=== PATIENT | male | born 1945 | race Caucasian/White ===

== ENCOUNTER → 2016-11-17 | Day surgery (SDC) | payer MEDICARE, BC ==
[~2016-11-17] MED LIST: ALPR0.254 PO; ASPI81TA2 PO; ATOR40TA59 PO; ESOM40CA47 PO; FERR-26 PO; IV RINGERS,LACTATED 1000ML 1,000 ML IV SCH; LIDOCAINE 2% PF Vial for OR 5 ML VIAL. ONE; LOSA50TA6 PO; PROPOFOL 20 ML IV ONE
[2016-11-17 10:15] VITALS: BP 149/71
== END | disposition home or self-care (01) ==
LOC: ENDOS 09:01
PROVIDERS: ATTEND Internal Medicine Gastroenterology
DX: K22.2 Esophageal obstruction (principal); K29.50 Unspecified chronic gastritis without bleeding; K21.9 Gastro-esophageal reflux disease without esophagitis; F41.9 Anxiety disorder, unspecified; I10 Essential (primary) hypertension; E78.5 Hyperlipidemia, unspecified; E78.00 Pure hypercholesterolemia, unspecified; M19.90 Unspecified osteoarthritis, unspecified site; Z98.42 Cataract extraction status, left eye; Z98.41 Cataract extraction status, right eye
CPT/HCPCS: 43235; 43450; J2704

== ENCOUNTER → 2021-04-13 | Outpatient (CLI) | payer MEDICARE, BC ==
[2016-11-17 10:15] VITALS: BP 149/71
[~2021-04-13] MED LIST changes: +ASPI-630 PO; -ASPI81TA2 PO; +BARIUM SULFATE 40% (APPLE) 148 GM PWD. PO ONE; -FERR-26 PO; +FERR325T14 PO; -IV RINGERS,LACTATED 1000ML 1,000 ML IV SCH; -LIDOCAINE 2% PF Vial for OR 5 ML VIAL. ONE; +LOSA-73 PO; -LOSA50TA6 PO; -PROPOFOL 20 ML IV ONE
--- NOTE | 2021-04-13 14:53 | RAD ---
EXAM: Video swallow evaluation. HISTORY: Dysphagia. TECHNIQUE: Fluoroscopic imaging was performed with a speech pathologist during the oral measures and during contrast of varying consistencies. A single fluoroscopic image is obtained. The total fluorosc opy time is 3 minutes. COMPARISON: None. FINDINGS: There is silent trace aspiration of thin barium consistency. There is significant pooling o f contrast within the valleculae and piriform sinuses. IMPRESSION: Trace aspiration of thin barium consistency and pooling of contrast within the valleculae and piriform sinuses. Please refer to the separate report by the speech pathologist for clinical rec ommendations. Electronically signed by: Josee Upton MD (04/13/2021 2:51 PM) [id number]
== END ==
LOC: RAD 12:56
PROVIDERS: ATTEND Internal Medicine Gastroenterology
DX: R13.10 Dysphagia, unspecified (principal); I10 Essential (primary) hypertension; E78.00 Pure hypercholesterolemia, unspecified; K21.9 Gastro-esophageal reflux disease without esophagitis; F41.9 Anxiety disorder, unspecified; M19.90 Unspecified osteoarthritis, unspecified site; Z95.1 Presence of aortocoronary bypass graft; Z98.41 Cataract extraction status, right eye; Z98.42 Cataract extraction status, left eye; Z98.890 Other specified postprocedural states
CPT/HCPCS: 74230; 92526-GN; 92611-GN

== ENCOUNTER → 2021-07-01 | Outpatient (CLI) | payer MEDICARE, BC ==
[2016-11-17 10:15] VITALS: BP 149/71
[~2021-07-01] MED LIST changes: -BARIUM SULFATE 40% (APPLE) 148 GM PWD. PO ONE
--- NOTE | 2021-07-01 11:23 | KCIC ---
MRI of the brain without contrast 07/01/2021 Clinical History: Dysphagia.. Technique: Unenhanced T1-weighted sagittal and axial, T2-weighted axial and coronal and FLAIR, gradie nt echo and diffusion-weighted axial images of the brain were obtained. Findings: There is generalized parenchymal atrophy. Patchy and several small scattered areas of incre ased signal intensity are seen within the periventricular and subcortical white matter along with the belinda of both cerebral hemispheres on the FLAIR and T2-weighted images consistent with areas of mild small vessel ischemic disease. No acute parenchymal abnormality is seen. No extra-axial fluid collection is noted. There is no MRI e vidence of acute ischemia/infarction. Mild mucosal thickening in seen scattered throughout the paranasal sinuses. There are small bilateral mastoid effusions. Normal flow voids are seen within the major vascular structures surrounding the b rain parenchyma. IMPRESSION: No acute parenchymal abnormality is seen. Electronically signed by: Adelso Stewart MD (07/01/2021 11:21 AM) [id number]
== END ==
LOC: KCIC MRI 09:58
PROVIDERS: ATTEND Nurse Practitioner Family
DX: J34.89 Other specified disorders of nose and nasal sinuses (principal); G93.6 Cerebral edema; R13.19 Other dysphagia
CPT/HCPCS: 70551

== ENCOUNTER 2022-01-13 08:06 | Inpatient (IN) | payer MEDICARE, BC ==
[~2022-01-13] VITALS: Ht 182.9 cm; Wt 67.1 kg
[2022-01-13 08:30] VITALS: BP 165/67
[2022-01-13 11:00] VITALS: BP 156/71
[2022-01-13] MEDS: MORPHINE SULFATE 2 MG/ML INJ. IV PRN ×2 (11:14→14:36)
[2022-01-13] MEDS ORDERED: CALC500T31 PO (12:22)
[2022-01-13] MEDS ORDERED: MULT-496 PO (12:22)
[2022-01-13] MEDS ORDERED: LOSA100T14 PO (12:22)
[2022-01-13] MEDS ORDERED: CHOL500021 PO (12:22)
[2022-01-13] MEDS ORDERED: ATOR80TA72 PO (12:22)
[2022-01-13] MEDS ORDERED: EZET10TA20 PO (12:22)
[2022-01-13] MEDS ORDERED: OMEG-129 PO (12:22)
[2022-01-13] MEDS ORDERED: ASPI-630 PO (12:22)
[2022-01-13] MEDS ORDERED: ALPR0.254 PO (12:22)
[2022-01-13] MEDS ORDERED: ASCO500C PO (12:22)
[2022-01-13] MEDS ORDERED: OMEP40CA7 PO (12:22)
[2022-01-13] MEDS ORDERED: ACETAMINOPHEN 650 MG SUPP.RECT. PR PRN (14:45)
[2022-01-13] MEDS ORDERED: ONDANSETRON PF 4 MG/2 ML VIAL. IVP PRN (14:45)
[2022-01-13] MEDS ORDERED: IV NORMAL SALINE 1000ML BAG 1,000 ML IV SCH (14:45)
[2022-01-13] MEDS ORDERED: BISACODYL 10 MG SUPP.RECT. PR PRN (14:45)
--- NOTE | 2022-01-13 14:50 | PDOC1 ---
History and Physical Date of Admission Date of Admission DATE: 01/13/22 TIME: 14:50 Identification/Chief Complaint Chief Complaint Abdominal pain, SBO Source Source: Patient History of Present Illness History of Present Illness Mr Iqbal is a 76-year-old male with PMHx dysphagia, HTN, AAA s/p stenting, GERD, anxiety who presented to [facility] in [place], [place] via EMS with abdominal pain and distention. This began on 01/12/22 around 1700 in the evening. He did have a BM on 01/12, but noted worsening distention and swelling and pain that is colicky, diffuse, worse in the left lower quadrant, not relieved with rest or r epositioning. He does note prior bowel obstruction and does have history of AAA s/p stenting as well as prior abdominal surgery over 10 years ago for what he thinks was perforated diverticulitis and CABG. He does see GI outpatient and has had recent swallow evaluation in the last year as well as MRI for dysphagia assessment. CT abdomen pelvis without contrast with distended small bowel loops on my interpretation with colonic stool notable. EKG appears to be sinus rhythm, rate 59, normal axis, no ST elevation or depression. WBC 12.3, Hb 12.7, MCV 102, platelets 232, NA 140, K4.2, BUN 23, CR 1.6, glucose 142, albumin 4, high-sensitivity troponin is 9, AST 28, ALT 29, alkaline phosphatase 115 total bilirubin 0.7, rapid COVID-19 negative NGT placed for patient comfort for decompression and given IV fentanyl 75mcg with some relief. Was transferred to [place] for surgical evaluation and further higher level of care. Pain not relieved bedside with 2mg of IV morphine, still visibly uncomfortable. Past Medical History Cardiovascular: HTN GI: GERD Psych: Anxiety Past Surgical History Past Surgical History Coronary Bypass Surgery, Gastric Bypass Past Surgical History: CABG Family History Family History: Hypertension Social History Smoke: No ALCOHOL: occassional Drugs: None Current Medications Current Medications Current Medications Morphine Sulfate (Morphine Sulfate) 2 mg PRN Q2HR PRN IV PAIN Last administered on 01/13/22at 14:36; Start 01/13/22 at 11:15 Active Scripts Active Reported [place]-3 Fish Oil 1,000 mg Sfgl ([place]-3 Fatty Acids/Fish Oil) 1 Each Capsule 1 Each PO DAILYWLUN Daily Value (Multivitamin) 1 Each Tablet 1 Tab PO HS 30 Days Vitamin C (Ascorbic Acid) 500 Mg Capsule.er 1,000 Mg PO HS D3-50 (Cholecalciferol (Vitamin D3)) 50,000 Unit Capsule 1,000 Unit PO HS Calcium Carbonate 500 Mg Tablet 1 Tab PO DAILYWLUN 30 Days Aspirin 81 Mg Tab.chew 1 Tab PO QMTH Atorvastatin Calcium 80 Mg Tablet 80 Mg PO QHS Zetia (Ezetimibe) 10 Mg Tablet 1 Tab PO HS 30 Days Alprazolam 0.25 Mg Tablet 1 Tab PO DAILY Losartan Potassium 100 Mg Tablet 100 Mg PO HS Omeprazole 40 Mg Capsule.dr 1 Cap PO DAILYWLUN Ferrous Sulfate 325 Mg Tablet 325 Mg PO Allergies Allergies: Coded Allergies: iodine (Verified Allergy, Intermediate, Rash, 11/17/16) ROS General: YES: Appetite PSYCHOLOGICAL ROS: No: Anxiety, Behavioral Disorder, Concentration difficultie, Decreased libido, Depression, Disorientation, Hallucinations, Hostility, Irritablity, Memory difficulties, Mood Swings, Obsessive thoughts, Physical a buse, Sexual abuse, Sleep disturbances, Suicidal ideation, Other Eyes: No Blurry vision, No Decreased vision, No Double vision, No Dry eyes, No Excessive tearing, No Eye Pain, No Itchy Eyes, No Loss of vision, No Photophobia, No Scotomata, No Uses contacts, No Uses glasses, No Other HEENT: No: Heacaches, Visual Changes, Hearing change, Nasal congestion, Nasal discharge, Oral lesions, Sinus pain, Sore Throat, Epistaxis, Sneezing, Snoring, Tinnitus, Vertigo, Vocal changes, Other ALLERGY AND IMMUNOLOGY: No: Hives, Insect Bite Sensitivity, Itchy/Watery Eyes, Nasal Congestion, Post Nasal Drip, Seasonal Allergies, Other Hematological and Lymphatic: No: Bleeding Problems, Blood Clots, Blood Transfusions, Brusing, Night Sweats, Pallor, Swollen Lymph Nodes, Other ENDOCRINE: No: Breast Changes, Galactorrhea, Hair Pattern Changes, Hot Flashes, Malaise/lethargy, Mood Swings, Palpitations, Polydipsia/polyuria, Skin Changes, Temperature Intolerance, Unexpected Weight Changes, Other Breast: No New/Changing Breast Lumps, No Nipple changes, No Nipple discharge, No Other Respiratory: No: Cough, Hemoptysis, Orthopnea, Pleuritic Pain, Shortness of breath, SOB with excertion, Sputum Changes, Stridor, Tachypnea, Wheezing, Other Cardiovascular: No Chest Pain, No Palpitations, No Orthopnea, No Paroxysmal Noc. Dyspnea, No Edema, No Lt Headedness, No Other Gastrointestinal: Yes Nausea, Yes Abdominal Pain; No Vomiting, No Diarrhea, No Constipation, No Melena, No Hematochezia, No Other Genitourinary: No Dysuria, No Frequency, No Incontinence, No Hematuria, No Retention, No Discharge, No Urgency, No Pain, No Flank Pain, No Other, No , No , No , No , No , No , No Musculoskeletal: No Gait Disturbance, No Joint Pain, No Joint Stiffness, No Joint Swelling, No Muscle Pain, No Muscular Weakness, No Pain In:, No Swelling In:, No Other Neurological: No Behavorial Changes, No Bowel/Bladder ControlChng, No Confusion, No Dizziness, No Gait Disturbance, No Headaches, No Impaired Coord/balance, No Memory Loss, No Numbness/Tingling, No Seizures, No Speech Problems, No Tremors, No Visual Changes, No Weakness, No Other Skin: No Dry Skin, No Eczema, No Hair Changes, No Lumps, No Mole Changes, No Mottling, No Nail Changes, No Pruritus, No Rash, No Skin Lesion Changes, No Other, No Acne Physical Exam General: Alert, Oriented X3, Cooperative, moderate distress HEENT: Atraumatic, PERRLA, EOMI, Mucous membr. moist/pink, Other (NGT right nares) Lungs: Clear to auscultation, Normal air movement Heart: S1S2, RRR, no thrills, no rubs, no gallops, no murmurs, other (CABG scar) Abdomen: No hepatosplenomegaly, No masses, Other (distended abdomen, diffusely tender) Extremities: No clubbing, No cyanosis, No edema, Normal pulses, No ten derness/swelling Skin: No rashes, No breakdown, No significant lesion Neuro: Normal gait, Normal speech, Strength at 5/5 X4 ext, Normal tone, Sensation intact, Cranial nerves 3-12 NL, Reflexes 2+ Psych/Mental Status: Mental status NL, Mood NL Vitals Vitals Vital Signs Date Time Temp Pulse Resp B/P (MAP) Pulse Ox O2 Delivery O2 Flow Rate FiO2 01/13/22 11:14 Room Air 01/13/22 11:00 97.5 60 18 156/71 99 100 97.5 Images Images EXAM: CT Abdomen and Pelvis without IV contrast CLINICAL HISTORY: Reason: abdominal distention, contrast allergy / Spl. Instructions: / History: . COMPARISON: none TECHNIQUE: Helical CT of the abdomen and pelvis without intravenous contrast. Axial, coronal and sagittal reformatted images were generated. PQRS compliance statement - One or more of the following individualized dose reduction techniques were utilized for this study: 1. Automated exposure control 2. Adjustment of the mA and/or kV according to patient size 3. Use of iterative reconstruction technique FINDINGS: Lack of intravenous contrast limits evaluation of solid organs, vasculature, and lymph nodes. Lower chest: Lung bases are clear. Abdomen and Pelvis: No focal liver lesion. Gallbladder is normal. Spleen and adrenal glands are grossly unremarkable. Bilateral renal cysts are seen. Nonobstructing right lower pole and left lower pole renal calculi. No hydronephrosis. No hydroureter. Diffuse dilated loops of small are seen to a transition point in the left lower quadrant. Left internal hernia contains a segment of small bowel although the transition point is thought to be distal to this. No pneumoperitoneum or bowel wall gas is convincingly identified. A few small foci of gas in the anterior right hemiabdomen likely within small bowel loops. The distal small bowel is decompressed. Large volume colonic stool content is seen. Anastomosis at the rectosigmoid is seen. Aortobiiliac atherosclerotic stent. Abdominal aortic aneurysm sac measures 4.9 cm. No abdominal or pelvic lymphadenopathy. No abdominal or pelvic ascites. Bones: Sclerotic focus left iliac bone, bone island. IMPRESSION: 1. Diffuse dilation of small bowel loops to the left lower quadrant, consistent with bowel obstruction. Left inguinal hernia contains a segment of small bowel although the obstruction appears to be distal. 2. Large volume colonic stool content. 3. Abdominal aortic aneurysm post aortobiiliac stent. 4. Nonobstructing renal calculi. Bilateral renal cysts are seen. VTE Prophylaxis Ordered VTE Prophylaxis Devices: No VTE Pharmacological Prophylaxi: Yes Assessment/Plan Assessment/Plan SBO - on CT. NPO. NGT decompression. Dr. Martinez consulted from general surgery. IV pain and nausea meds Intractable abdominal pain - likely from SBO. IV morphine prn Constipation - dulcolax suppository prn CAD s/p CABG - no active chest pain currently GERD - IV ppi Anxiety - on prn xanax, no SSRI or SNRI prescriptions HTN - on amlodipine and losartan. Will give PRN vasotec while NPO HLD - on zetia, lipitor. Hold while NPO AAA - s/p stenting JULI - likely vasomotor nephropathy - will hydrate and monitor renal function Macrocytic anemia - will check B12. Possibly ETOH is more than patient states Left inguinal hernia - reducible Nonobstructing renal calculi Bilateral renal cysts FEN - NPO PPX - heparin FULL CODE DIspo - inpatient Justifications for Admission Abdominal Pain Indications Hemodynamically unstable?: Yes Justification for admission: Patient is hemodynamically unstable as indicated by persistent tachycardia (of.), or hypotension (of..) or orthostatic vitalsigns (of..) despite approapriate treatment. Is patient in severe pain?: Yes Justification for admission: Patient has severe pain that requires (parenteral analgesic-please state analgesics and route) at least every 4 hours necessitating inpatient level of care. Is NPO status required?: Yes Justification for admission: Patient may require to be NPO for greater 24hours making it medically necessary to manage patient as inpatient. Other Justification LEWIS DOMINGUEZ MD Jan 13, 2022 14:50
[2022-01-13 15:00] VITALS: BP 179/73
[2022-01-13] MEDS: MORPHINE SULFATE 4 MG/ML INJ. IVP PRN ×2 (16:58→21:10)
[2022-01-13 19:00] VITALS: BP 166/60
--- NOTE | 2022-01-13 22:23 | NUR ---
Pt. accidentially pulled out NG tube. Canister was all the way empty and nothing was coming out. Notified Dr. Pereira and he stated that we can just leave it out for now and they will get another KUB in the am.
[2022-01-13 23:00] VITALS: BP 169/80
[2022-01-14] MEDS: MORPHINE SULFATE 4 MG/ML INJ. IVP PRN ×2 (01:35→06:21)
[2022-01-14 03:00] VITALS: BP 162/79
[2022-01-14 07:00] VITALS: BP 163/59
--- NOTE | 2022-01-14 08:15 | RAD ---
Supine view of the abdomen were performed. History: Small bowel obstruction Comparison: None. FINDINGS: Extensive gaseous distended loops of small and large bowel. No radiographic which through o ccluded cecum/ascending colon as well as the rectum. No pathologic air-fluid levels. No gross eviden ce of free intra-abdominal air. Lung bases are not visualized. No pathologic calcifications. Aortobii liac endovascular repair is noted. No acute osseous process. IMPRESSION: Extensive gaseous distention of numerous small and large bowel loops may be from distal obstruction v ersus ileus. Large colorectal stool burden present. Correlate with symptoms of constipation. Recommen d continued evaluation with serial abdominal radiographs. Electronically signed by: Javad Morgan DO (01/14/2022 8:13 AM) [id number]
[2022-01-14 08:20] LABS: ALBUMIN 3.4 g/dL (3.4-5.0); ALBUMIN/GLOBULIN RATIO 0.9 (1.0-1.7); CALCIUM 8.7 mg/dL (8.5-10.1); CREATININE 1.5 mg/dL (0.7-1.3); GFR 45.6; POTASSIUM 4.2 mmol/L (3.5-5.1); TOTAL BILIRUBIN 0.8 mg/dL (0.2-1.0)
--- NOTE | 2022-01-14 08:47 | PDOC2 ---
CONSULT Date of Consult Date of Consult DATE: 01/14/22 TIME: 08:43 Reason for Consult Reason for Consult: SBO Referring Physician Referring Physician: Dr Almanzar Identification/Chief Complaint Chief Complaint abdominal pain Source Source: Chart review, Patient History of Present Illness Reason for Visit: Here with abdominal pain, distention. No bowel function since . Hx of colon surgery in 2009, thinks for diverticulitis. Has had SBO in past he believes. Ng was placed, accidentally pulled out, not replaced Past Medical History Cardiovascular: HTN GI: GERD Psych: Anxiety Past Surgical History Past Surgical History: CABG Family History Family History: Hypertension Social History No ALCOHOL: occassional Drugs: None Current Medications Current Medications Current Medications Morphine Sulfate (Morphine Sulfate) 2 mg PRN Q2HR PRN IV PAIN Last administered on 01/13/22at 14:36; Start 01/13/22 at 11:15; Stop 01/13/22 at 16:04; Status DC Sodium Chloride 1,000 ml @ 100 mls/hr Q10H IV Last administered on 01/13/22at 14:45; Start 01/13/22 at 14:45; Stop 01/14/22 at 00:44; Status DC Ondansetron HCl (Zofran) 4 mg PRN Q4HRS PRN IVP NAUSEA/VOMITING; Start 01/13/22 at 14:45 Bisacodyl (Dulcolax Supp) 10 mg PRN DAILY PRN MT CONSTIPATION; Start 01/13/22 at 14:45 Acetaminophen (Tylenol Supp) 650 mg PRN Q6HRS PRN MT MILD PAIN / TEMP > 100.3'F; Start 01/13/22 at 14:45 Morphine Sulfate (Morphine Sulfate) 4 mg PRN Q2HR PRN IVP PAIN Last administered on 01/14/22at 06:21; Start 01/13/22 at 16:15 Pantoprazole Sodium (PROTONIX VIAL for IV PUSH) 40 mg DAILYAC IVP ; Start 01/14/22 at 07:30 Enalaprilat (Vasotec Inj) 1.25 mg PRN Q6HRS PRN IVP HYPERTENSION; Start 01/13/22 at 22:30 Active Scripts Active Reported [place]-3 Fish Oil 1,000 mg Sfgl ([place]-3 Fatty Acids/Fish Oil) 1 Each Capsule 1 Each PO DAILYWLUN Daily Value (Multivitamin) 1 Each Tablet 1 Tab PO HS 30 Days Vitamin C (Ascorbic Acid) 500 Mg Capsule.er 1,000 Mg PO HS D3-50 (Cholecalciferol (Vitamin D3)) 50,000 Unit Capsule 1,000 Unit PO HS Calcium Carbonate 500 Mg Tablet 1 Tab PO DAILYWLUN 30 Days Aspirin 81 Mg Tab.chew 1 Tab PO QMTH Atorvastatin Calcium 80 Mg Tablet 80 Mg PO QHS Zetia (Ezetimibe) 10 Mg Tablet 1 Tab PO HS 30 Days Alprazolam 0.25 Mg Tablet 1 Tab PO DAILY Losartan Potassium 100 Mg Tablet 100 Mg PO HS Omeprazole 40 Mg Capsule.dr 1 Cap PO DAILYWLUN Ferrous Sulfate 325 Mg Tablet 325 Mg PO Allergies Allergies: Coded Allergies: iodine (Verified Allergy, Intermediate, Rash, 11/17/16) ROS General: No: Chills, Other (fevers ) PSYCHOLOGICAL ROS: No: Anxiety, Depression Eyes: No Blurry vision, No Double vision HEENT: No: Heacaches, Sore Throat Hematological and Lymphatic: No: Bleeding Problems, Blood Clots Respiratory: No: Cough, Shortness of breath Cardiovascular: No Chest Pain, No Palpitations Gastrointestinal: Yes Other (see hpi) Genitourinary: No Dysuria, No Hematuria Musculoskeletal: No Joint Pain Neurological: No Impaired Coord/balance, No Numbness/Tingling Skin: No Pruritus Physical Exam General: Alert, Oriented X3, Cooperative HEENT: Atraumatic, PERRLA Lungs: Clear to auscultation, Normal air movement Heart: Regular rate, Normal S1, Normal S2 Abdomen: Soft, Other (severe distention, nontender, no peritoneal signs ) Extremities: No clubbing, No cyanosis Skin: No rashes, No breakdown Neuro: Normal speech, Strength at 5/5 X4 ext Psych/Mental Status: Mental status NL, Mood NL MUSCULOSKELETAL: No deformity, No swelling Vitals VITALS Vital Signs Date Time Temp Pulse Resp B/P (MAP) Pulse Ox O2 Delivery O2 Flow Rate FiO2 01/14/22 07:29 17 Room Air 01/14/22 07:00 97.5 86 163/59 (93) 87 97.5 Labs Labs Laboratory Tests Test 01/14/22 06:30 Sodium Level 144 mmol/L (136-145) Potassium Level 4.2 mmol/L (3.5-5.1) Chloride Level 103 mmol/L (98-107) Carbon Dioxide Level 25 mmol/L (21-32) Anion Gap 16 (6-14) Blood Urea Nitrogen 22 mg/dL (8-26) Creatinine 1.5 mg/dL (0.7-1.3) Estimated GFR (Cockcroft-Gault) 45.6 BUN/Creatinine Ratio 15 (6-20) Glucose Level 113 mg/dL (70-99) Calcium Level 8.7 mg/dL (8.5-10.1) Total Bilirubin 0.8 mg/dL (0.2-1.0) Aspartate Amino Transf (AST/SGOT) 21 U/L (15-37) Alanine Aminotransferase (ALT/SGPT) 21 U/L (16-63) Alkaline Phosphatase 107 U/L (46-116) Total Protein 7.0 g/dL (6.4-8.2) Albumin 3.4 g/dL (3.4-5.0) Albumin/Globulin Ratio 0.9 (1.0-1.7) Thyroid Stimulating Hormone (TSH) 1.866 uIU/mL (0.358-3.74) Laboratory Tests Test 01/14/22 06:30 Sodium Level 144 mmol/L (136-145) Potassium Level 4.2 mmol/L (3.5-5.1) Chloride Level 103 mmol/L (98-107) Carbon Dioxide Level 25 mmol/L (21-32) Anion Gap 16 (6-14) Blood Urea Nitrogen 22 mg/dL (8-26) Creatinine 1.5 mg/dL (0.7-1.3) Estimated GFR (Cockcroft-Gault) 45.6 BUN/Creatinine Ratio 15 (6-20) Glucose Level 113 mg/dL (70-99) Calcium Level 8.7 mg/dL (8.5-10.1) Total Bilirubin 0.8 mg/dL (0.2-1.0) Aspartate Amino Transf (AST/SGOT) 21 U/L (15-37) Alanine Aminotransferase (ALT/SGPT) 21 U/L (16-63) Alkaline Phosphatase 107 U/L (46-116) Total Protein 7.0 g/dL (6.4-8.2) Albumin 3.4 g/dL (3.4-5.0) Albumin/Globulin Ratio 0.9 (1.0-1.7) Thyroid Stimulating Hormone (TSH) 1.866 uIU/mL (0.358-3.74) Assessment/Plan Assessment/Plan SBO LIH., reducible, does not appear obstruction point large stool burden, ? ileus, constipation will replace NG, decompress, give suppository, premed for SBFT in AM GLENDY CENTENO APRN Jan 14, 2022 08:46
[2022-01-14] MEDS ORDERED: BISACODYL 10 MG SUPP.RECT. PR ONE (09:15)
[2022-01-14] MEDS: PANTOPRAZOLE IV PUSH 40 MG VIAL. IVP SCH (09:42)
[2022-01-14 11:00] VITALS: BP 174/80
[2022-01-14 11:23] LABS: BASO % 0 % (0-3); EOS % 0 % (0-3); HEMATOCRIT 36.5 % (39.0-53.0); HEMOGLOBIN 12.1 g/dL (13.0-17.5); LYMPH # 0.4 x10^3/uL (1.0-4.8); LYMPH % 3 % (24-48); MEAN CORPUSCULAR HEMOGLOBIN 34 pg (25-35); MEAN CORPUSCULAR HGB CONC 33 g/dL (31-37); MEAN CORPUSCULAR VOLUME 103 fL (79-100); MONO # 1.3 x10^3/uL (0.0-1.1); MONO % 9 % (0-9); NEUT # 12.9 x10^3/uL (1.8-7.7); NEUT % 88 % (31-73); PLATELET COUNT 198 x10^3/uL (140-400); RED BLOOD COUNT 3.55 x10^6/uL (4.30-5.70); WHITE BLOOD COUNT 14.6 x10^3/uL (4.0-11.0)
--- NOTE | 2022-01-14 11:25 | NUR ---
THIS [employer]ORER PLACED NG TUBE TO PATIENTS RIGHT NARE, PATIENT TOLERATED PLACEMENT WITH MINIMAL DISCOMFORT, KUB ORDERED PER THIS [employer]ER TO ASSESS PLACEMENT, PRIOR TO OBTAINIG KUB PATIENT BEGAN TO COUGH AND SPIT UP CREAM COLORED SECRETIONS, PATIENT EXAMINED BY DR. MARSHALL ON THE UNIT AND NG REMOVED, COUGHING DECREASED AT THAT TIME AND NO MORE SPITTING UP NOTICED.
--- NOTE | 2022-01-14 11:29 | PDOC ---
[employer] PROGRESS NOTE Date of Service DOS: DATE: 01/14/22 TIME: 11:25 Chief Complaint Chief Complaint SBO - on CT. NPO. NGT decompression. Dr. Martinez consulted from general surgery. IV pain and nausea meds Intractable abdominal pain - likely from SBO. IV morphine prn Constipation - dulcolax suppository prn CAD s/p CABG - no active chest pain currently GERD - IV ppi Anxiety - on prn xanax, no SSRI or SNRI prescriptions HTN - on amlodipine and losartan. Will give PRN vasotec while NPO HLD - on zetia, lipitor. Hold while NPO AAA - s/p stenting JULI - likely vasomotor nephropathy - will hydrate and monitor renal function Macrocytic anemia - will check B12. Possibly ETOH is more than patient states Left inguinal hernia - reducible Nonobstructing renal calculi Bilateral renal cysts FEN - NPO PPX - heparin FULL CODE DIspo - inpatient History of Present Illness History of Present Illness Mr Iqbal is a 76-year-old male with PMHx dysphagia, HTN, AAA s/p stenting, GERD, anxiety who presented to [facility] in [place], [place] via EMS with abdominal pain and distention. This began on 01/12/22 around 1700 in the evening. He did have a BM on 01/12, but noted worsening distention and swelling and pain that is colicky, diffuse, worse in the left lower quadrant, not relieved with rest or repositioning. He does note prior bowel obstruction and does have history of AAA s/p stenting as well as prior abdominal surgery over 10 years ago for what he thinks was perforated diverticulitis and CABG. He does see GI outpatient and has had recent swallow evaluation in the last year as well as MRI for dysphagia assessment. CT abdomen pelvis without contrast with distended small bowel loops on my interpretation with colonic stool notable. EKG appears to be sinus rhythm, rate 59, normal axis, no ST elevation or depression. WBC 12.3, Hb 12.7, MCV 102, platelets 232, NA 140, K4.2, BUN 23, CR 1.6, glucose 142, albumin 4, high-sensitivity troponin is 9, AST 28, ALT 29, alkaline phosphatase 115 total bilirubin 0.7, rapid COVID-19 negative NGT placed for patient comfort for decompression and given IV fentanyl 75mcg with some relief. Was transferred to [place] for surgical evaluation and furt her higher level of care. Pain not relieved bedside with 2mg of IV morphine, still visibly uncomfortable. 01/14: Increase morphine to 4 mg. NG tube pulled out overnight and replaced though it was pulmonary placement. KUB on my review with significant gaseous distention and small bowel and large colon stool burden and large bowel consistent with continued obstruction. Discussed with general surgery needs repeat NG tube placement and bowel regimen. Small bowel follow-through planned tentatively 01/15/2022, given iodine allergy will premedicate starting today. Vitals/I&O Vitals/I&O: Vital Signs Date Time Temp Pulse Resp B/P (MAP) Pulse Ox O2 Delivery O2 Flow Rate FiO2 01/14/22 07:29 17 Room Air 01/14/22 07:00 97.5 86 163/59 (93) 87 97.5 I & O 01/13/22 01/13/22 01/14/22 15:00 23:00 07:00 Intake Total 0 ml Balance 0 ml Physical Exam General: Alert, Oriented X3, Cooperative Heart: Regular rate, Normal S1, Normal S2 Abdomen: Soft, Other (severe distention, nontender, no peritoneal signs ) Extremities: No clubbing, No cyanosis Skin: No rashes, No breakdown Labs Labs: Laboratory Tests Test 01/14/22 06:30 Sodium Level 144 mmol/L (136-145) Potassium Level 4.2 mmol/L (3.5-5.1) Chloride Level 103 mmol/L (98-107) Carbon Dioxide Level 25 mmol/L (21-32) Anion Gap 16 (6-14) Blood Urea Nitrogen 22 mg/dL (8-26) Creatinine 1.5 mg/dL (0.7-1.3) Estimated GFR (Cockcroft-Gault) 45.6 BUN/Creatinine Ratio 15 (6-20) Glucose Level 113 mg/dL (70-99) Calcium Level 8.7 mg/dL (8.5-10.1) Total Bilirubin 0.8 mg/dL (0.2-1.0) Aspartate Amino Transf (AST/SGOT) 21 U/L (15-37) Alanine Aminotransferase (ALT/SGPT) 21 U/L (16-63) Alkaline Phosphatase 107 U/L (46-116) Total Protein 7.0 g/dL (6.4-8.2) Albumin 3.4 g/dL (3.4-5.0) Albumin/Globulin Ratio 0.9 (1.0-1.7) Thyroid Stimulating Hormone (TSH) 1.866 uIU/mL (0.358-3.74) Comment Review of Relevant I have reviewed the following items vira (where applicable) has been applied. Medications: Current Medications Medications (Trade) Dose Ordered Sig/Oscar Route PRN Reason Start Time Stop Time Status Last Admin Dose Admin Sodium Chloride 1,000 ml @ 100 mls/hr Q10H IV 01/13/22 14:45 01/14/22 00:44 DC 01/13/22 14:45 Morphine Sulfate (Morphine Sulfate) 4 mg PRN Q2HR PRN IVP PAIN 01/13/22 16:15 01/14/22 06:21 Pantoprazole Sodium (PROTONIX VIAL for IV PUSH) 40 mg DAILYAC IVP 01/14/22 07:30 01/14/22 09:42 Bisacodyl (Dulcolax Supp) 10 mg 1X ONCE NM 01/14/22 09:15 01/14/22 09:27 DC 01/14/22 09:42 Justifications for Admission Abdominal Pain Indications Hemodynamically unstable?: Yes Justification for admission: Patient is hemodynamically unstable as indicated by persistent tachycardia (of.), or hypotension (of..) or orthostatic vitalsigns (of..) despite approapriate treatment. Is patient in severe pain?: Yes Justification for admission: Patient has severe pain that requires (parenteral analgesic-please state analgesics and route) at least every 4 hours necessitating inpatient level of care. Is NPO status required?: Yes Justification for admission: Patient may require to be NPO for greater 24hours making it medically necessary to manage patient as inpatient. Other Justification LEWIS DOMINGUEZ MD Jan 14, 2022 11:29
[2022-01-14] MEDS ORDERED: DOCUSATE SODIUM 283 MG/5 ML ENEMA. PR PRN (11:30)
[2022-01-14] MEDS ORDERED: LIDOCAINE 2% JELLY 6ML IN APPLICATOR. MM ONE (12:00)
[2022-01-14] MEDS: methylPREDNISolone SOD SUCC PF 40 MG/ML VIAL. IV SCH ×2 (12:24→21:32)
[2022-01-14 13:45] LABS: % BANDS 10 % (0-9); % BASOS 1 % (0-3); % LYMPHS 3 % (24-48); % MONOS 6 % (0-10); % SEGS 80 % (35-66); PLT ESTIMATE ADEQUATE (ADEQUATE)
[2022-01-14] MEDS: IV DEXTROSE 5%-LACT RINGERS 1,000 ML IV SCH ×2 (14:07→21:35)
[2022-01-14 15:00] VITALS: BP 166/69
[2022-01-14 19:00] VITALS: BP 125/62
[2022-01-14] MEDS ORDERED: FAMOTIDINE 20 MG/2 ML VIAL IVP ONE (21:00)
[2022-01-14] MEDS ORDERED: diphenhydrAMINE 50 MG/ML VIAL IV ONE (21:00)
[2022-01-14 23:00] VITALS: BP 165/63
--- NOTE | 2022-01-15 00:13 | RAD ---
AP abdomen x-ray HISTORY: Nasogastric tube placement COMPARISON: CT abdomen January 13, 2022 FINDINGS: Nasogastric tube has been placed in the distal segment of the cathter appears abnormally co iled with in an S-shape at the region of the diaphragmatic hiatus and immediately beneath the hiatus of the upper midline abdomen at the general region of the patient's hiatal hernia of the stomach. The re is prominence gaseous distention of large and small bowel loops and a large volume stool similar t o the prior CT study likely a combination of constipation as well as small bowel obstruction which wa s present on the prior study. Endovascular repair of covered stent graft aorta and iliac arteries aga in demonstrated. IMPRESSION: Nasogastric intubation with abnormal S shape coiling of the distal catheter at the diaphr agmatic hiatus associated with the patient's hiatal hernia. Small bowel obstruction and constipation similar to prior CT imaging. Electronically signed by: Festus Castañeda MD (01/15/2022 12:10 AM) VIRGINIE
[2022-01-15] MEDS: methylPREDNISolone SOD SUCC PF 40 MG/ML VIAL. IV SCH ×3 (00:53→12:12)
[2022-01-15 03:03] VITALS: BP 170/79
[2022-01-15 07:00] VITALS: BP 187/72
[2022-01-15] MEDS ORDERED: IOHEXOL 300 MG/ML 100ML VIAL. PO ONE (07:15)
[2022-01-15] MEDS ORDERED: CONTRAST GIVEN. MC PRN (07:15)
--- NOTE | 2022-01-15 07:18 | NUR ---
NG tube unable to be placed correctly by warehouse logistics manager b/c of hiatal hernia that showed up in the KUB last night. Dr Lloyd notified and he stated that it was okay to leave NG out because it would need to be placed in IR via scope. However, if Mau started vomiting, having severe abdominal pain or distention I would need to call him back.
[2022-01-15 07:35] LABS: BASO % 0 % (0-3); EOS % 0 % (0-3); HEMATOCRIT 35.9 % (39.0-53.0); HEMOGLOBIN 12.2 g/dL (13.0-17.5); LYMPH # 0.4 x10^3/uL (1.0-4.8); LYMPH % 3 % (24-48); MEAN CORPUSCULAR HEMOGLOBIN 34 pg (25-35); MEAN CORPUSCULAR HGB CONC 34 g/dL (31-37); MEAN CORPUSCULAR VOLUME 101 fL (79-100); MONO # 0.2 x10^3/uL (0.0-1.1); MONO % 2 % (0-9); NEUT # 13.3 x10^3/uL (1.8-7.7); NEUT % 96 % (31-73); PLATELET COUNT 160 x10^3/uL (140-400); RED BLOOD COUNT 3.57 x10^6/uL (4.30-5.70); RED CELL DISTRIBUTION WIDTH 12.9 % (11.5-14.5); WHITE BLOOD COUNT 13.9 x10^3/uL (4.0-11.0)
[2022-01-15 07:52] LABS: ALBUMIN 3.1 g/dL (3.4-5.0); ALBUMIN/GLOBULIN RATIO 0.8 (1.0-1.7); CREATININE 1.3 mg/dL (0.7-1.3); GFR 53.8; POTASSIUM 4.1 mmol/L (3.5-5.1); TOTAL BILIRUBIN 0.8 mg/dL (0.2-1.0)
--- NOTE | 2022-01-15 09:07 | PDOC ---
[employer] PROGRESS NOTE Date of Service DOS: DATE: 01/15/22 TIME: 08:58 Chief Complaint Chief Complaint SBO - on CT. NPO. NGT decompression. Dr. Martinez consulted from general surgery. IV pain and nausea meds Intractable abdominal pain - likely from SBO. IV morphine prn Constipation - dulcolax suppository prn CAD s/p CABG - no active chest pain currently GERD - IV ppi Anxiety - on prn xanax, no SSRI or SNRI prescriptions HTN - on amlodipine and losartan. Will give PRN vasotec while NPO HLD - on zetia, lipitor. Hold while NPO AAA - s/p stenting JULI - likely vasomotor nephropathy - will hydrate and monitor renal function Macrocytic anemia - will check B12. Possibly ETOH is more than patient states Left inguinal hernia - reducible Nonobstructing renal calculi Bilateral renal cysts FEN - NPO PPX - heparin FULL CODE DIspo - inpatient History of Present Illness History of Present Illness Mr Iqbal is a 76-year-old male with PMHx dysphagia, HTN, AAA s/p stenting, GERD, anxiety who presented to [facility] in [place], [place] via EMS with abdominal pain and distention. This began on 01/12/22 around 1700 in the evening. He did have a BM on 01/12, but noted worsening distention and swelling and pain that is colicky, diffuse, worse in the left lower quadrant, not relieved with rest or repositioning. He does note prior bowel obstruction and does have history of AAA s/p stenting as well as prior abdominal surgery over 10 years ago for what he thinks was perforated diverticulitis and CABG. He does see GI outpatient and has had recent swallow evaluation in the last year as well as MRI for dysphagia assessment. CT abdomen pelvis without contrast with distended small bowel loops on my interpretation with colonic stool notable. EKG appears to be sinus rhythm, rate 59, normal axis, no ST elevation or depression. WBC 12.3, Hb 12.7, MCV 102, platelets 232, NA 140, K4.2, BUN 23, CR 1.6, glucose 142, albumin 4, high-sensitivity troponin is 9, AST 28, ALT 29, alkaline phosphatase 115 total bilirubin 0.7, rapid COVID-19 negative NGT placed for patient comfort for decompression and given IV fentanyl 75mcg with some relief. Was transferred to [place] for surgical evaluation and furt her higher level of care. Pain not relieved bedside with 2mg of IV morphine, still visibly uncomfortable. 01/14: Increase morphine to 4 mg. NG tube pulled out overnight and replaced though it was pulmonary placement. KUB on my review with significant gaseous distention and small bowel and large colon stool burden and large bowel consistent with continued obstruction. Discussed with general surgery needs repeat NG tube placement and bowel regimen. Small bowel follow-through planned tentatively 01/15/2022, given iodine allergy will premedicate starting today. 01/15: Replacement NG tube with air released no fluid. Did have a bowel movement after suppository. Still with pain requiring IV morphine. For small bowel follow-through today Vitals/I&O Vitals/I&O: Vital Signs Date Time Temp Pulse Resp B/P (MAP) Pulse Ox O2 Delivery O2 Flow Rate FiO2 01/15/22 03:03 98.2 73 18 170/79 (109) 95 Room Air 98.2 I & O 01/14/22 01/14/22 01/15/22 15:00 23:00 07:00 Output Total 850 ml 250 ml 0 ml Balance -850 ml -250 ml 0 ml Physical Exam General: Alert, Oriented X3, Cooperative Heart: Regular rate, Normal S1, Normal S2 Abdomen: Soft, Other (severe distention, nontender, no peritoneal signs ) Extremities: No clubbing, No cyanosis Skin: No rashes, No breakdown Labs Labs: Laboratory Tests Test 01/14/22 11:10 01/15/22 06:35 White Blood Count 14.6 x10^3/uL (4.0-11.0) 13.9 x10^3/uL (4.0-11.0) Red Blood Count 3.55 x10^6/uL (4.30-5.70) 3.57 x10^6/uL (4.30-5.70) Hemoglobin 12.1 g/dL (13.0-17.5) 12.2 g/dL (13.0-17.5) Hematocrit 36.5 % (39.0-53.0) 35.9 % (39.0-53.0) Mean Corpuscular Volume 103 fL (79-100) 101 fL (79-100) Mean Corpuscular Hemoglobin 34 pg (25-35) 34 pg (25-35) Mean Corpuscular Hemoglobin Concent 33 g/dL (31-37) 34 g/dL (31-37) Red Cell Distribution Width 13.0 % (11.5-14.5) 12.9 % (11.5-14.5) Platelet Count 198 x10^3/uL (140-400) 160 x10^3/uL (140-400) Neutrophils (%) (Auto) 88 % (31-73) 96 % (31-73) Lymphocytes (%) (Auto) 3 % (24-48) 3 % (24-48) Monocytes (%) (Auto) 9 % (0-9) 2 % (0-9) Eosinophils (%) (Auto) 0 % (0-3) 0 % (0-3) Basophils (%) (Auto) 0 % (0-3) 0 % (0-3) Neutrophils # (Auto) 12.9 x10^3/uL (1.8-7.7) 13.3 x10^3/uL (1.8-7.7) Lymphocytes # (Auto) 0.4 x10^3/uL (1.0-4.8) 0.4 x10^3/uL (1.0-4.8) Monocytes # (Auto) 1.3 x10^3/uL (0.0-1.1) 0.2 x10^3/uL (0.0-1.1) Eosinophils # (Auto) 0.0 x10^3/uL (0.0-0.7) 0.0 x10^3/uL (0.0-0.7) Basophils # (Auto) 0.0 x10^3/uL (0.0-0.2) 0.0 x10^3/uL (0.0-0.2) Segmented Neutrophils % 80 % (35-66) Band Neutrophils % 10 % (0-9) Lymphocytes % 3 % (24-48) Monocytes % 6 % (0-10) Basophils % 1 % (0-3) Platelet Estimate Adequate (ADEQUATE) Sodium Level 140 mmol/L (136-145) Potassium Level 4.1 mmol/L (3.5-5.1) Chloride Level 104 mmol/L (98-107) Carbon Dioxide Level 27 mmol/L (21-32) Anion Gap 9 (6-14) Blood Urea Nitrogen 25 mg/dL (8-26) Creatinine 1.3 mg/dL (0.7-1.3) Estimated GFR (Cockcroft-Gault) 53.8 BUN/Creatinine Ratio 19 (6-20) Glucose Level 170 mg/dL (70-99) Calcium Level 9.0 mg/dL (8.5-10.1) Total Bilirubin 0.8 mg/dL (0.2-1.0) Aspartate Amino Transf (AST/SGOT) 20 U/L (15-37) Alanine Aminotransferase (ALT/SGPT) 20 U/L (16-63) Alkaline Phosphatase 93 U/L (46-116) Total Protein 7.0 g/dL (6.4-8.2) Albumin 3.1 g/dL (3.4-5.0) Albumin/Globulin Ratio 0.8 (1.0-1.7) Comment Review of Relevant I have reviewed the following items vira (where applicable) has been applied. Medications: Current Medications Medications (Trade) Dose Ordered Sig/Oscar Route PRN Reason Start Time Stop Time Status Last Admin Dose Admin Bisacodyl (Dulcolax Supp) 10 mg 1X ONCE DC 01/14/22 09:15 01/14/22 09:27 DC 01/14/22 09:42 Famotidine (Pepcid Vial) 20 mg 1X ONCE IVP 01/14/22 21:00 01/14/22 21:01 DC 01/14/22 21:31 Diphenhydramine HCl (Benadryl) 50 mg 1X ONCE IV 01/14/22 21:00 01/14/22 21:01 DC 01/14/22 21:31 Methylprednisolone Sodium Succinate (SOLU-Medrol 40MG VIAL) 60 mg Q6HRS IV 01/14/22 12:00 01/15/22 05:44 Lidocaine HCl (Glydo (Lidocaine) Jelly) 1 kei 1X ONCE MM 01/14/22 12:00 01/14/22 12:01 DC 01/14/22 23:40 Dextrose/Lactated Ringer's 1,000 ml @ 75 mls/hr [id number] IV 01/14/22 13:00 01/16/22 04:59 01/14/22 21:35 Iohexol (Omnipaque 300 Mg/ml) 400 ml 1X ONCE PO 01/15/22 07:15 01/15/22 07:20 DC 01/15/22 07:50 Justifications for Admission Abdominal Pain Indications Hemodynamically unstable?: Yes Justification for admission: Patient is hemodynamically unstable as indicated by persistent tachycardia (of.), or hypotension (of..) or orthostatic vitalsigns (of..) despite approapriate treatment. Is patient in severe pain?: Yes Justification for admission: Patient has severe pain that requires (parenteral analgesic-please state analgesics and route) at least every 4 hours necessitating inpatient level of care. Is NPO status required?: Yes Justification for admission: Patient may require to be NPO for greater 24hours making it medically necessary to manage patient as inpatient. Other Justification LEWIS DOMINGUEZ MD Jan 15, 2022 09:07
--- NOTE | 2022-01-15 09:30 | NUR ---
PATIENT REMAINS NPO AT THIS TIME, NG TO RIGHT NARE CLAMPED PATIENT DENIES PAIN, DISCOMFORT, SMALL BOWEL SERIES CONTINUES, DULCOLAX SUPPOSITORY GIVEN PER THIS [employer] ASSEMBLER.
[2022-01-15] MEDS ORDERED: fentaNYL PF VIAL 100 MCG/2 ML VIAL IVP PRN (10:15)
[2022-01-15] MEDS: PANTOPRAZOLE IV PUSH 40 MG VIAL. IVP SCH (10:23)
[2022-01-15] MEDS ORDERED: KETOROLAC 15 MG/ML VIAL. IVP PRN (10:30)
[2022-01-15 11:00] VITALS: BP 185/74
--- NOTE | 2022-01-15 12:59 | PDOC ---
SURGICAL PROGRESS NOTE DATE: 01/15/22 TIME: 12:58 Subjective does feel better had a couple stools no nausea ROS NO fevers, chills NO chest pain, palpations NO cough, SOA Vital Signs Vital Signs Date Time Temp Pulse Resp B/P (MAP) Pulse Ox O2 Delivery O2 Flow Rate FiO2 01/15/22 11:00 97.4 78 19 185/74 (111) 94 Room Air 97.4 I&O Intake and Output 01/15/22 07:00 Output Total 1100 ml Balance -1100 ml Output Urine Total 1100 ml # Voids 3 # Bowel Movements 1 General: Alert, Oriented X3, Cooperative HEENT: Other (NG in place) Lungs: Clear to auscultation, Normal air movement Heart: Regular rate, Normal S1, Normal S2 Abdomen: Soft, Other (mildly distended, nontender ) Labs Laboratory Tests Test 01/14/22 06:30 01/14/22 11:10 01/15/22 06:35 Sodium Level 144 mmol/L (136-145) 140 mmol/L (136-145) Potassium Level 4.2 mmol/L (3.5-5.1) 4.1 mmol/L (3.5-5.1) Chloride Level 103 mmol/L (98-107) 104 mmol/L (98-107) Carbon Dioxide Level 25 mmol/L (21-32) 27 mmol/L (21-32) Anion Gap 16 (6-14) 9 (6-14) Blood Urea Nitrogen 22 mg/dL (8-26) 25 mg/dL (8-26) Creatinine 1.5 mg/dL (0.7-1.3) 1.3 mg/dL (0.7-1.3) Estimated GFR (Cockcroft-Gault) 45.6 53.8 BUN/Creatinine Ratio 15 (6-20) 19 (6-20) Glucose Level 113 mg/dL (70-99) 170 mg/dL (70-99) Calcium Level 8.7 mg/dL (8.5-10.1) 9.0 mg/dL (8.5-10.1) Total Bilirubin 0.8 mg/dL (0.2-1.0) 0.8 mg/dL (0.2-1.0) Aspartate Amino Transf (AST/SGOT) 21 U/L (15-37) 20 U/L (15-37) Alanine Aminotransferase (ALT/SGPT) 21 U/L (16-63) 20 U/L (16-63) Alkaline Phosphatase 107 U/L (46-116) 93 U/L (46-116) Total Protein 7.0 g/dL (6.4-8.2) 7.0 g/dL (6.4-8.2) Albumin 3.4 g/dL (3.4-5.0) 3.1 g/dL (3.4-5.0) Albumin/Globulin Ratio 0.9 (1.0-1.7) 0.8 (1.0-1.7) Thyroid Stimulating Hormone (TSH) 1.866 uIU/mL (0.358-3.74) White Blood Count 14.6 x10^3/uL (4.0-11.0) 13.9 x10^3/uL (4.0-11.0) Red Blood Count 3.55 x10^6/uL (4.30-5.70) 3.57 x10^6/uL (4.30-5.70) Hemoglobin 12.1 g/dL (13.0-17.5) 12.2 g/dL (13.0-17.5) Hematocrit 36.5 % (39.0-53.0) 35.9 % (39.0-53.0) Mean Corpuscular Volume 103 fL (79-100) 101 fL (79-100) Mean Corpuscular Hemoglobin 34 pg (25-35) 34 pg (25-35) Mean Corpuscular Hemoglobin Concent 33 g/dL (31-37) 34 g/dL (31-37) Red Cell Distribution Width 13.0 % (11.5-14.5) 12.9 % (11.5-14.5) Platelet Count 198 x10^3/uL (140-400) 160 x10^3/uL (140-400) Neutrophils (%) (Auto) 88 % (31-73) 96 % (31-73) Lymphocytes (%) (Auto) 3 % (24-48) 3 % (24-48) Monocytes (%) (Auto) 9 % (0-9) 2 % (0-9) Eosinophils (%) (Auto) 0 % (0-3) 0 % (0-3) Basophils (%) (Auto) 0 % (0-3) 0 % (0-3) Neutrophils # (Auto) 12.9 x10^3/uL (1.8-7.7) 13.3 x10^3/uL (1.8-7.7) Lymphocytes # (Auto) 0.4 x10^3/uL (1.0-4.8) 0.4 x10^3/uL (1.0-4.8) Monocytes # (Auto) 1.3 x10^3/uL (0.0-1.1) 0.2 x10^3/uL (0.0-1.1) Eosinophils # (Auto) 0.0 x10^3/uL (0.0-0.7) 0.0 x10^3/uL (0.0-0.7) Basophils # (Auto) 0.0 x10^3/uL (0.0-0.2) 0.0 x10^3/uL (0.0-0.2) Segmented Neutrophils % 80 % (35-66) Band Neutrophils % 10 % (0-9) Lymphocytes % 3 % (24-48) Monocytes % 6 % (0-10) Basophils % 1 % (0-3) Platelet Estimate Adequate (ADEQUATE) Laboratory Tests Test 01/15/22 06:35 White Blood Count 13.9 x10^3/uL (4.0-11.0) Red Blood Count 3.57 x10^6/uL (4.30-5.70) Hemoglobin 12.2 g/dL (13.0-17.5) Hematocrit 35.9 % (39.0-53.0) Mean Corpuscular Volume 101 fL (79-100) Mean Corpuscular Hemoglobin 34 pg (25-35) Mean Corpuscular Hemoglobin Concent 34 g/dL (31-37) Red Cell Distribution Width 12.9 % (11.5-14.5) Platelet Count 160 x10^3/uL (140-400) Neutrophils (%) (Auto) 96 % (31-73) Lymphocytes (%) (Auto) 3 % (24-48) Monocytes (%) (Auto) 2 % (0-9) Eosinophils (%) (Auto) 0 % (0-3) Basophils (%) (Auto) 0 % (0-3) Neutrophils # (Auto) 13.3 x10^3/uL (1.8-7.7) Lymphocytes # (Auto) 0.4 x10^3/uL (1.0-4.8) Monocytes # (Auto) 0.2 x10^3/uL (0.0-1.1) Eosinophils # (Auto) 0.0 x10^3/uL (0.0-0.7) Basophils # (Auto) 0.0 x10^3/uL (0.0-0.2) Sodium Level 140 mmol/L (136-145) Potassium Level 4.1 mmol/L (3.5-5.1) Chloride Level 104 mmol/L (98-107) Carbon Dioxide Level 27 mmol/L (21-32) Anion Gap 9 (6-14) Blood Urea Nitrogen 25 mg/dL (8-26) Creatinine 1.3 mg/dL (0.7-1.3) Estimated GFR (Cockcroft-Gault) 53.8 BUN/Creatinine Ratio 19 (6-20) Glucose Level 170 mg/dL (70-99) Calcium Level 9.0 mg/dL (8.5-10.1) Total Bilirubin 0.8 mg/dL (0.2-1.0) Aspartate Amino Transf (AST/SGOT) 20 U/L (15-37) Alanine Aminotransferase (ALT/SGPT) 20 U/L (16-63) Alkaline Phosphatase 93 U/L (46-116) Total Protein 7.0 g/dL (6.4-8.2) Albumin 3.1 g/dL (3.4-5.0) Albumin/Globulin Ratio 0.8 (1.0-1.7) Assessment/Plan sbo some bowel function await SBFT Justicifation of Admission Dx: Justifications for Admission: Justification of Admission Dx: Yes Comments: sbo 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
[2022-01-15 15:00] VITALS: BP 190/73
[2022-01-15 19:00] VITALS: BP 183/69
[2022-01-15] MEDS: IV DEXTROSE 5%-LACT RINGERS 1,000 ML IV SCH (21:02)
[2022-01-15] MEDS: ENALAPRILAT 1.25 MG/ML VIAL. IVP PRN (21:03)
[2022-01-15 23:02] VITALS: BP 175/60
[2022-01-16 03:03] VITALS: BP 167/60
[2022-01-16 07:00] VITALS: BP 187/65
[2022-01-16] MEDS: PANTOPRAZOLE IV PUSH 40 MG VIAL. IVP SCH (07:59)
[2022-01-16 08:01] LABS: BASO % 0 % (0-3); EOS % 0 % (0-3); HEMATOCRIT 31.9 % (39.0-53.0); HEMOGLOBIN 10.7 g/dL (13.0-17.5); LYMPH # 0.5 x10^3/uL (1.0-4.8); LYMPH % 3 % (24-48); MEAN CORPUSCULAR HEMOGLOBIN 34 pg (25-35); MEAN CORPUSCULAR HGB CONC 34 g/dL (31-37); MEAN CORPUSCULAR VOLUME 101 fL (79-100); MONO # 1.2 x10^3/uL (0.0-1.1); MONO % 7 % (0-9); NEUT # 16.2 x10^3/uL (1.8-7.7); NEUT % 91 % (31-73); PLATELET COUNT 152 x10^3/uL (140-400); RED BLOOD COUNT 3.15 x10^6/uL (4.30-5.70); WHITE BLOOD COUNT 17.9 x10^3/uL (4.0-11.0)
[2022-01-16 08:29] LABS: ALBUMIN 2.9 g/dL (3.4-5.0); CALCIUM 8.4 mg/dL (8.5-10.1); CREATININE 1.3 mg/dL (0.7-1.3); GFR 53.8; TOTAL BILIRUBIN 0.5 mg/dL (0.2-1.0); TOTAL PROTEIN 5.8 g/dL (6.4-8.2)
--- NOTE | 2022-01-16 08:46 | RAD ---
EXAM: DG SMALL BOWEL FOLLOW THROUGH 01/15/2022 7:23 AM CLINICAL INDICATION: Small bowel obstruction COMPARISON: CT abdomen pelvis 01/13/2022 and abdominal radiograph 01/14/2022 TECHNIQUE: A tassel snipper radiograph was obtained. Patient was administered 400 cc Omnipaque 300 oral contr ast and radiograph obtained at 0 minutes, 20 minutes, 40 minutes, 60 minutes, 2 hours, 3 hours, 5 jem rs, and 6 hours. FINDINGS: There is diffuse gaseous distention of the small bowel. Large volume of stool in the right hemicolon. Gaseous distention of transverse and proximal descending colon. Aortobiiliac stent graft seen. There is a nasogastric tube coiled in the upper gastric body. Probable hiatal hernia. Surgical clips are seen in the left upper quadrant. There are median sternotomy wires. The heart is normal in size. Lungs are clear. Contrast progressively fills loops of dilated small bowel in the left hemiabdo men and a loop of dilated small bowel to the right of midline but never reaches the colon. IMPRESSION: 1. Small bowel obstruction with contrast seen in nondilated loops of small bowel, predominantly in th e left hemiabdomen. Contrast has not reached the colon within 6 hours. 2. Large volume of stool, greatest in the right hemicolon. Dilated transverse colon, as seen on CT. Electronically signed by: Meka Preciado MD (01/16/2022 8:44 AM) [id number]
[2022-01-16 11:00] VITALS: BP 162/70
--- NOTE | 2022-01-16 11:08 | PDOC ---
[employer] PROGRESS NOTE Date of Service DOS: DATE: 01/16/22 TIME: 11:06 Chief Complaint Chief Complaint SBO CAD GERD Anxiety Hyperlipidemia Hypertension AAA JULI Macrocytic anemia Nonobstructing renal calculi History of Present Illness History of Present Illness 01/16/2022 Patient seen and examined He still has NG in place but it is currently clamped Also has IV normal saline hanging at 75 cc an hour Discussed with RN Discussed with case management Chart reviewed Mr Iqbal is a 76-year-old male with PMHx dysphagia, HTN, AAA s/p stenting, GERD, anxiety who presented to [facility] in [place], [place] via EMS with abdominal pain and distention. This began on 01/12/22 around 1700 in the evening. He did have a BM on 01/12, but noted worsening distention and swelling and pain that is colicky, diffuse, worse in the left lower quadrant, not relieved with rest or repositioning. He does note prior bowel obstruction and does have history of AAA s/p stenting as well as prior abdominal surgery over 10 years ago for what he thinks was perforated diverticulitis and CABG. He does see GI outpatient and has had recent swallow evaluation in the last year as well as MRI for dysphagia assessment. CT abdomen pelvis without contrast with distended small bowel loops on my interpretation with colonic stool notable. EKG appears to be sinus rhythm, rate 59, normal axis, no ST elevation or depression. WBC 12.3, Hb 12.7, MCV 102, platelets 232, NA 140, K4.2, BUN 23, CR 1.6, glucose 142, albumin 4, high-sensitivity troponin is 9, AST 28, ALT 29, alkaline alicia sphatase 115 total bilirubin 0.7, rapid COVID-19 negative NGT placed for patient comfort for decompression and given IV fentanyl 75mcg with some relief. Was transferred to [place] for surgical evaluation and further higher level of care. Pain not relieved bedside with 2mg of IV morphine, still visibly uncomfortable. 01/14: Increase morphine to 4 mg. NG tube pulled out overnight and replaced though it was pulmonary placement. KUB on my review with significant gaseous distention and small bowel and large colon stool burden and large bowel consistent with continued obstruction. Discussed with general surgery needs repeat NG tube placement and bowel regimen. Small bowel follow-through planned tentatively 01/15/2022, given iodine allergy will premedicate starting today. 01/15: Replacement NG tube with air released no fluid. Did have a bowel movement after suppository. Still with pain requiring IV morphine. For small bowel follow-through today Vitals/I&O Vitals/I&O: Vital Signs Date Time Temp Pulse Resp B/P (MAP) Pulse Ox O2 Delivery O2 Flow Rate FiO2 01/16/22 07:00 97.3 71 20 187/65 (105) 98 Room Air 97.3 I & O 01/15/22 01/15/22 01/16/22 15:00 23:00 07:00 Intake Total 0 ml 1000 ml Output Total 200 ml 0 ml Balance -200 ml 1000 ml 0 ml Physical Exam General: Alert, Oriented X3, Cooperative Heart: Regular rate, Normal S1, Normal S2 Abdomen: Soft, Other (mildly distended, nontender ) Extremities: No clubbing, No cyanosis Skin: No rashes, No breakdown Labs Labs: Laboratory Tests Test 01/16/22 06:53 White Blood Count 17.9 x10^3/uL (4.0-11.0) Red Blood Count 3.15 x10^6/uL (4.30-5.70) Hemoglobin 10.7 g/dL (13.0-17.5) Hematocrit 31.9 % (39.0-53.0) Mean Corpuscular Volume 101 fL (79-100) Mean Corpuscular Hemoglobin 34 pg (25-35) Mean Corpuscular Hemoglobin Concent 34 g/dL (31-37) Red Cell Distribution Width 13.0 % (11.5-14.5) Platelet Count 152 x10^3/uL (140-400) Neutrophils (%) (Auto) 91 % (31-73) Lymphocytes (%) (Auto) 3 % (24-48) Monocytes (%) (Auto) 7 % (0-9) Eosinophils (%) (Auto) 0 % (0-3) Basophils (%) (Auto) 0 % (0-3) Neutrophils # (Auto) 16.2 x10^3/uL (1.8-7.7) Lymphocytes # (Auto) 0.5 x10^3/uL (1.0-4.8) Monocytes # (Auto) 1.2 x10^3/uL (0.0-1.1) Eosinophils # (Auto) 0.0 x10^3/uL (0.0-0.7) Basophils # (Auto) 0.0 x10^3/uL (0.0-0.2) Sodium Level 147 mmol/L (136-145) Potassium Level 4.0 mmol/L (3.5-5.1) Chloride Level 110 mmol/L (98-107) Carbon Dioxide Level 28 mmol/L (21-32) Anion Gap 9 (6-14) Blood Urea Nitrogen 33 mg/dL (8-26) Creatinine 1.3 mg/dL (0.7-1.3) Estimated GFR (Cockcroft-Gault) 53.8 BUN/Creatinine Ratio 25 (6-20) Glucose Level 105 mg/dL (70-99) Calcium Level 8.4 mg/dL (8.5-10.1) Total Bilirubin 0.5 mg/dL (0.2-1.0) Aspartate Amino Transf (AST/SGOT) 28 U/L (15-37) Alanine Aminotransferase (ALT/SGPT) 21 U/L (16-63) Alkaline Phosphatase 84 U/L (46-116) Total Protein 5.8 g/dL (6.4-8.2) Albumin 2.9 g/dL (3.4-5.0) Albumin/Globulin Ratio 1.0 (1.0-1.7) Assessment and Plan Assessmemt and Plan SBO - on CT. NPO. NGT decompression. Dr. Martinez consulted from general surgery. IV pain and nausea meds Intractable abdominal pain - likely from SBO. IV morphine prn Constipation - dulcolax suppository prn CAD s/p CABG - no active chest pain currently GERD - IV ppi Anxiety - on prn xanax, no SSRI or SNRI prescriptions HTN - on amlodipine and losartan. Will give PRN vasotec while NPO HLD - on zetia, lipitor. Hold while NPO AAA - s/p stenting JULI - likely vasomotor nephropathy - will hydrate and monitor renal function Macrocytic anemia - will check B12. Possibly ETOH is more than patient states Left inguinal hernia - reducible Nonobstructing renal calculi Bilateral renal cysts Hope to DC NG today Once NG is out we could hopefully start clear liquids Appreciate subspecialist input DVT prophylaxis Full code Hope to resume home meds soon FEN - NPO PPX - heparin FULL CODE DIspo - inpatient Comment Review of Relevant I have reviewed the following items vira (where applicable) has been applied. Justifications for Admission Abdominal Pain Indications Hemodynamically unstable?: Yes Justification for admission: Patient is hemodynamically unstable as indicated by persistent tachycardia (of.), or hypotension (of..) or orthostatic vitalsigns (of..) despite approapriate treatment. Is patient in severe pain?: Yes Justification for admission: Patient has severe pain that requires (parenteral analgesic-please state analgesics and route) at least every 4 hours necessitating inpatient level of care. Is NPO status required?: Yes Justification for admission: Patient may require to be NPO for greater 24hours making it medically necessary to manage patient as inpatient. Other Justification MARY GONZALEZ III DO Jan 16, 2022 11:08
[2022-01-16] MEDS: ENALAPRILAT 1.25 MG/ML VIAL. IVP PRN (12:08)
--- NOTE | 2022-01-16 12:10 | PDOC ---
SURGICAL PROGRESS NOTE DATE: 01/16/22 TIME: 12:08 Subjective resting having multiple stools no n/v no pain ROS No chest pain, no palpations NO fevers, no chills NO SOB, cough Vital Signs Vital Signs Date Time Temp Pulse Resp B/P (MAP) Pulse Ox O2 Delivery O2 Flow Rate FiO2 01/16/22 11:00 97.7 60 18 162/70 (100) 94 Room Air 97.7 I&O Intake and Output 01/16/22 07:00 Intake Total 1000 ml Output Total 200 ml Balance 800 ml Intake Oral 0 ml IV Total 1000 ml Output Urine Total 200 ml # Voids 1 # Bowel Movements 2 General: Alert, Oriented X3, Cooperative HEENT: Other (ng clamped) Lungs: Clear to auscultation, Normal air movement Heart: Regular rate, Normal S1, Normal S2 Abdomen: Soft, No tenderness, Other (much less distended ) Labs Laboratory Tests Test 01/15/22 06:35 01/16/22 06:53 White Blood Count 13.9 x10^3/uL (4.0-11.0) 17.9 x10^3/uL (4.0-11.0) Red Blood Count 3.57 x10^6/uL (4.30-5.70) 3.15 x10^6/uL (4.30-5.70) Hemoglobin 12.2 g/dL (13.0-17.5) 10.7 g/dL (13.0-17.5) Hematocrit 35.9 % (39.0-53.0) 31.9 % (39.0-53.0) Mean Corpuscular Volume 101 fL (79-100) 101 fL (79-100) Mean Corpuscular Hemoglobin 34 pg (25-35) 34 pg (25-35) Mean Corpuscular Hemoglobin Concent 34 g/dL (31-37) 34 g/dL (31-37) Red Cell Distribution Width 12.9 % (11.5-14.5) 13.0 % (11.5-14.5) Platelet Count 160 x10^3/uL (140-400) 152 x10^3/uL (140-400) Neutrophils (%) (Auto) 96 % (31-73) 91 % (31-73) Lymphocytes (%) (Auto) 3 % (24-48) 3 % (24-48) Monocytes (%) (Auto) 2 % (0-9) 7 % (0-9) Eosinophils (%) (Auto) 0 % (0-3) 0 % (0-3) Basophils (%) (Auto) 0 % (0-3) 0 % (0-3) Neutrophils # (Auto) 13.3 x10^3/uL (1.8-7.7) 16.2 x10^3/uL (1.8-7.7) Lymphocytes # (Auto) 0.4 x10^3/uL (1.0-4.8) 0.5 x10^3/uL (1.0-4.8) Monocytes # (Auto) 0.2 x10^3/uL (0.0-1.1) 1.2 x10^3/uL (0.0-1.1) Eosinophils # (Auto) 0.0 x10^3/uL (0.0-0.7) 0.0 x10^3/uL (0.0-0.7) Basophils # (Auto) 0.0 x10^3/uL (0.0-0.2) 0.0 x10^3/uL (0.0-0.2) Sodium Level 140 mmol/L (136-145) 147 mmol/L (136-145) Potassium Level 4.1 mmol/L (3.5-5.1) 4.0 mmol/L (3.5-5.1) Chloride Level 104 mmol/L (98-107) 110 mmol/L (98-107) Carbon Dioxide Level 27 mmol/L (21-32) 28 mmol/L (21-32) Anion Gap 9 (6-14) 9 (6-14) Blood Urea Nitrogen 25 mg/dL (8-26) 33 mg/dL (8-26) Creatinine 1.3 mg/dL (0.7-1.3) 1.3 mg/dL (0.7-1.3) Estimated GFR (Cockcroft-Gault) 53.8 53.8 BUN/Creatinine Ratio 19 (6-20) 25 (6-20) Glucose Level 170 mg/dL (70-99) 105 mg/dL (70-99) Calcium Level 9.0 mg/dL (8.5-10.1) 8.4 mg/dL (8.5-10.1) Total Bilirubin 0.8 mg/dL (0.2-1.0) 0.5 mg/dL (0.2-1.0) Aspartate Amino Transf (AST/SGOT) 20 U/L (15-37) 28 U/L (15-37) Alanine Aminotransferase (ALT/SGPT) 20 U/L (16-63) 21 U/L (16-63) Alkaline Phosphatase 93 U/L (46-116) 84 U/L (46-116) Total Protein 7.0 g/dL (6.4-8.2) 5.8 g/dL (6.4-8.2) Albumin 3.1 g/dL (3.4-5.0) 2.9 g/dL (3.4-5.0) Albumin/Globulin Ratio 0.8 (1.0-1.7) 1.0 (1.0-1.7) Laboratory Tests Test 01/16/22 06:53 White Blood Count 17.9 x10^3/uL (4.0-11.0) Red Blood Count 3.15 x10^6/uL (4.30-5.70) Hemoglobin 10.7 g/dL (13.0-17.5) Hematocrit 31.9 % (39.0-53.0) Mean Corpuscular Volume 101 fL (79-100) Mean Corpuscular Hemoglobin 34 pg (25-35) Mean Corpuscular Hemoglobin Concent 34 g/dL (31-37) Red Cell Distribution Width 13.0 % (11.5-14.5) Platelet Count 152 x10^3/uL (140-400) Neutrophils (%) (Auto) 91 % (31-73) Lymphocytes (%) (Auto) 3 % (24-48) Monocytes (%) (Auto) 7 % (0-9) Eosinophils (%) (Auto) 0 % (0-3) Basophils (%) (Auto) 0 % (0-3) Neutrophils # (Auto) 16.2 x10^3/uL (1.8-7.7) Lymphocytes # (Auto) 0.5 x10^3/uL (1.0-4.8) Monocytes # (Auto) 1.2 x10^3/uL (0.0-1.1) Eosinophils # (Auto) 0.0 x10^3/uL (0.0-0.7) Basophils # (Auto) 0.0 x10^3/uL (0.0-0.2) Sodium Level 147 mmol/L (136-145) Potassium Level 4.0 mmol/L (3.5-5.1) Chloride Level 110 mmol/L (98-107) Carbon Dioxide Level 28 mmol/L (21-32) Anion Gap 9 (6-14) Blood Urea Nitrogen 33 mg/dL (8-26) Creatinine 1.3 mg/dL (0.7-1.3) Estimated GFR (Cockcroft-Gault) 53.8 BUN/Creatinine Ratio 25 (6-20) Glucose Level 105 mg/dL (70-99) Calcium Level 8.4 mg/dL (8.5-10.1) Total Bilirubin 0.5 mg/dL (0.2-1.0) Aspartate Amino Transf (AST/SGOT) 28 U/L (15-37) Alanine Aminotransferase (ALT/SGPT) 21 U/L (16-63) Alkaline Phosphatase 84 U/L (46-116) Total Protein 5.8 g/dL (6.4-8.2) Albumin 2.9 g/dL (3.4-5.0) Albumin/Globulin Ratio 1.0 (1.0-1.7) Problem List sbo vs ileus sbft reviewed, appears clinically improved this afternoon, will repeat xr, if contrast passing will dc ng and start clears Justicifation of Admission Dx: Justifications for Admission: Justification of Admission Dx: Yes GLENDY CENTENO [employer] Jan 16, 2022 12:10
[2022-01-16 15:00] VITALS: BP 145/52
--- NOTE | 2022-01-16 15:11 | RAD ---
EXAM: XR ABDOMEN COMP ACUTE 01/16/2022 12:52 PM CLINICAL INDICATION: Small bowel obstruction COMPARISON: Small bowel series radiograph 01/14/2022 TECHNIQUE: AP supine and upright view of the abdomen and AP upright view of the chest FINDINGS: Contrast has progressed into the colon and is now seen throughout the colon reaching the r ectum. Contrast has mostly cleared the small bowel. There is still diffusely dilated loops of bowel. The nasogastric tube is unchanged. The heart is normal in size. There are median sternotomy wires. Jennifer ngs are well-expanded and clear. No pleural effusion or pneumothorax. No pneumoperitoneum. An aortobi iliac stent graft is redemonstrated. IMPRESSION: 1. Persistent diffuse dilation of bowel with progression of contrast through the colon Findings may represent partial small bowel obstruction or ileus. Electronically signed by: Meka Preciado MD (01/16/2022 3:09 PM) [id number]
[2022-01-16] MEDS: IV DEXTROSE 5%-LACT RINGERS 1,000 ML IV SCH (16:15)
[2022-01-16 19:00] VITALS: BP 163/63
[2022-01-16 23:00] VITALS: BP 158/52
[2022-01-17 03:00] VITALS: BP 154/66
[2022-01-17] MEDS: IV DEXTROSE 5%-LACT RINGERS 1,000 ML IV SCH ×2 (05:24→18:37)
[2022-01-17] MEDS: PANTOPRAZOLE IV PUSH 40 MG VIAL. IVP SCH (05:25)
[2022-01-17 07:00] VITALS: BP 110/67
--- NOTE | 2022-01-17 09:54 | PDOC ---
[employer] PROGRESS NOTE Date of Service DOS: DATE: 01/17/22 TIME: 09:52 Chief Complaint Chief Complaint SBO CAD GERD Anxiety Hyperlipidemia Hypertension AAA JULI Macrocytic anemia Nonobstructing renal calculi History of Present Illness History of Present Illness 01/17 Patient evaluated examined at bedside. NG still in place. Resting in bed. Abdominal series repeated this morning. PACS system down so could not review this but patient with some clinical improvement. Surgical team following, recommendations reviewed. Continue NG for now until seen by surgical team today. Discussed with bedside RN. He is having bowel movements. 01/16/2022 Patient seen and examined He still has NG in place but it is currently clamped Also has IV normal saline hanging at 75 cc an hour Discussed with RN Discussed with case management Chart reviewed Mr Iqbal is a 76-year-old male with PMHx dysphagia, HTN, AAA s/p stenting, GERD, anxiety who presented to [facility] in [place], [place] via EMS with abdominal pain and distention. This began on 01/12/22 around 1700 in the evening. He did have a BM on 01/12, but noted worsening distention and swelling and pain that is coli cky, diffuse, worse in the left lower quadrant, not relieved with rest or repositioning. He does note prior bowel obstruction and does have history of AAA s/p stenting as well as prior abdominal surgery over 10 years ago for what he thinks was perforated diverticulitis and CABG. He does see GI outpatient and has had recent swallow evaluation in the last year as well as MRI for dysphagia assessment. CT abdomen pelvis without contrast with distended small bowel loops on my interpretation with colonic stool notable. EKG appears to be sinus rhythm, rate 59, normal axis, no ST elevation or depression. WBC 12.3, Hb 12.7, MCV 102, platelets 232, NA 140, K4.2, BUN 23, CR 1.6, glucose 142, albumin 4, high-sensitivity troponin is 9, AST 28, ALT 29, alkaline phosphatase 115 total bilirubin 0.7, rapid COVID-19 negative NGT placed for patient comfort for decompression and given IV fentanyl 75mcg with some relief. Was transferred to [place] for surgical evaluation and further higher level of care. Pain not relieved bedside with 2mg of IV morphine, still visibly uncomfortable. 01/14: Increase morphine to 4 mg. NG tube pulled out overnight and replaced though it was pulmonary placement. KUB on my review with significant gaseous distention and small bowel and large colon stool burden and large bowel consistent with continued obstruction. Discussed with general surgery needs repeat NG tube placement and bowel regimen. Small bowel follow-through planned tentatively 01/15/2022, given iodine allergy will premedicate starting today. 01/15: Replacement NG tube with air released no fluid. Did have a bowel movement after suppository. Still with pain requiring IV morphine. For small bowel follow-through today Vitals/I&O Vitals/I&O: Vital Signs Date Time Temp Pulse Resp B/P (MAP) Pulse Ox O2 Delivery O2 Flow Rate FiO2 01/17/22 07:00 98.1 64 17 110/67 (81) 96 Room Air 98.1 I & O 01/16/22 01/16/22 01/17/22 15:00 23:00 07:00 Intake Total 0 ml Balance 0 ml Physical Exam General: Alert, Oriented X3, Cooperative Heart: Regular rate, Normal S1, Normal S2 Abdomen: Soft, No tenderness, Other (much less distended ) Extremities: No clubbing, No cyanosis Skin: No rashes, No breakdown Comment Review of Relevant I have reviewed the following items vira (where applicable) has been applied. Medications: Current Medications Medications (Trade) Dose Ordered Sig/Oscar Route PRN Reason Start Time Stop Time Status Last Admin Dose Admin Dextrose/Lactated Ringer's 1,000 ml @ 75 mls/hr [id number] IV 01/16/22 16:00 01/17/22 05:24 Justifications for Admission Abdominal Pain Indications Hemodynamically unstable?: Yes Justification for admission: Patient is hemodynamically unstable as indicated by persistent tachycardia (of.), or hypotension (of..) or orthostatic vitalsigns (of..) despite approapriate treatment. Is patient in severe pain?: Yes Justification for admission: Patient has severe pain that requires (parenteral analgesic-please state analgesics and route) at least every 4 hours necessitating inpatient level of care. Is NPO status required?: Yes Justification for admission: Patient may require to be NPO for greater 24hours making it medically necessary to manage patient as inpatient. Other Justification LEWIS LIU MD Jan 17, 2022 09:54
[2022-01-17 11:00] VITALS: BP 159/52
--- NOTE | 2022-01-17 11:57 | PDOC ---
SURGICAL PROGRESS NOTE DATE: 01/17/22 TIME: 11:51 Subjective feels better no nausea having stools tolerating ng clamping and clears ROS: no fevers, chills No chest pain, palpations No SOA, cough Vital Signs Vital Signs Date Time Temp Pulse Resp B/P (MAP) Pulse Ox O2 Delivery O2 Flow Rate FiO2 01/17/22 08:00 Room Air 01/17/22 07:00 98.1 64 17 110/67 (81) 96 98.1 I&O Intake and Output 01/17/22 07:00 Intake Total 0 ml Balance 0 ml Intake Oral 0 ml # Voids 3 General: Alert, Oriented X3, Cooperative HEENT: Other (ng ) Lungs: Clear to auscultation, Normal air movement Heart: Regular rate, Normal S1, Normal S2 Abdomen: Soft, No tenderness, Other (less distended) Labs Laboratory Tests Test 01/16/22 06:53 White Blood Count 17.9 x10^3/uL (4.0-11.0) Red Blood Count 3.15 x10^6/uL (4.30-5.70) Hemoglobin 10.7 g/dL (13.0-17.5) Hematocrit 31.9 % (39.0-53.0) Mean Corpuscular Volume 101 fL (79-100) Mean Corpuscular Hemoglobin 34 pg (25-35) Mean Corpuscular Hemoglobin Concent 34 g/dL (31-37) Red Cell Distribution Width 13.0 % (11.5-14.5) Platelet Count 152 x10^3/uL (140-400) Neutrophils (%) (Auto) 91 % (31-73) Lymphocytes (%) (Auto) 3 % (24-48) Monocytes (%) (Auto) 7 % (0-9) Eosinophils (%) (Auto) 0 % (0-3) Basophils (%) (Auto) 0 % (0-3) Neutrophils # (Auto) 16.2 x10^3/uL (1.8-7.7) Lymphocytes # (Auto) 0.5 x10^3/uL (1.0-4.8) Monocytes # (Auto) 1.2 x10^3/uL (0.0-1.1) Eosinophils # (Auto) 0.0 x10^3/uL (0.0-0.7) Basophils # (Auto) 0.0 x10^3/uL (0.0-0.2) Sodium Level 147 mmol/L (136-145) Potassium Level 4.0 mmol/L (3.5-5.1) Chloride Level 110 mmol/L (98-107) Carbon Dioxide Level 28 mmol/L (21-32) Anion Gap 9 (6-14) Blood Urea Nitrogen 33 mg/dL (8-26) Creatinine 1.3 mg/dL (0.7-1.3) Estimated GFR (Cockcroft-Gault) 53.8 BUN/Creatinine Ratio 25 (6-20) Glucose Level 105 mg/dL (70-99) Calcium Level 8.4 mg/dL (8.5-10.1) Total Bilirubin 0.5 mg/dL (0.2-1.0) Aspartate Amino Transf (AST/SGOT) 28 U/L (15-37) Alanine Aminotransferase (ALT/SGPT) 21 U/L (16-63) Alkaline Phosphatase 84 U/L (46-116) Total Protein 5.8 g/dL (6.4-8.2) Albumin 2.9 g/dL (3.4-5.0) Albumin/Globulin Ratio 1.0 (1.0-1.7) Assessment/Plan xr pending by appearance, less distention, contrast in colon will dc ng, advance diet will ask GI to comment, chronic constipation could be contributing to ileus findings Justicifation of Admission Dx: Justifications for Admission: Justification of Admission Dx: Yes GLENDY CENTENO APRN Jan 17, 2022 11:57
--- NOTE | 2022-01-17 13:29 | PDOC2 ---
GI CONSULT Date of Service: DATE: 01/17/22 TIME: 13:00 Reason For Consult: constipation, ileus HPI: HPI: 76 y/o male ill since . Began w/ abdominal pain and distention - similar to past bowel obstructions for which he has been hospitalized @ [facility] and [place]. Last occurred ~2 years ago - sometimes NGT required, sometimes quick resolution. This time, CT @ [facility] (below) concerning for SBO and large volume colonic stool content and he was transferred here. Followed by surgery. Has now passed "a lot" of loose stool (per pt) and is tolerating clear liquids, feeling better. Plans to remove NGT (which has been clamped) today. H/o GERD (main symptom is coughing after eating) improved with a pill every day - can't remember the name. Long h/o dysphagia (meat gets caught in upper-middle neck sometimes) - stable, follows w/ [facility]. No chronic n/v, no hematemesis. Appetite stable. Has never weighed more than 140 pounds and was excited recently when weight was up to 139. No diarrhea, hematochezia, or melena. Typical bowel pattern "for a good while" has been no stools for a couple days, then 4-5 stools daily. Describes some straining and passage of hard stools. Takes Miralax PRN (if no stools for at least 2 days). Says his PCP Dr. Richey has checked x-rays (of his back) and has commented that he "always has a lot of air." [facility] records indicate EGD w/ esophageal dilation performed by Dr. Hidalgo here in 11/2016. He thinks this sounds about right. He also reports EGD, colonoscopy, and what sounds like flexible sigmoidoscopy all performed @ within the past 5 years. Had black stools at that time and also recalls "low hemoglobin" @ [facility] about 2.5 years ago. Thinks maybe "the beginnings of an ulcer" was noted but also indicates this was improved/healing when rechecked (with another EGD). Additional h/o colon resection in 2019 for a blockage he thinks (though other notes mention diverticulitis). Takes iron QD and has for years. Says Hgb is monitor by PCP. Cannot recall if he has ever seen a retail field merchandiser. No GB, liver, or pancreas history. Takes ASA 81mg alternating once weekly and then twice weekly. Occasional Tylenol for back pain (upper and lower). PMH: PMH: HTN, HLD, CKD, anxiety, nephrolithiasis, renal cysts bilateral cataract extraction, tonsillectomy, AAA s/p aortobiiliac stent, CABG, colon resection FH: Family History: Cancer (ovarian - mother), CAD Social History: Smoke: No ALCOHOL: other (every Sunday has a 7Up with three drops of wild turkey) Drugs: None ROS: GEN: Denies fevers, chills, sweats HEENT: Denies blurred vision, sore throat CV: Denies chest pain RESP: Denies shortness of air, cough GI: Per HPI : Denies hematuria, dysuria ENDO: Denies weight changes NEURO: Denies confusion, dizziness MSK: +back/neck pain SKIN: Denies jaundice, pruritus Vitals: Vitals: Vital Signs Date Time Temp Pulse Resp B/P (MAP) Pulse Ox O2 Delivery O2 Flow Rate FiO2 01/17/22 11:00 98.3 56 17 159/52 (87) 95 Room Air 98.3 Allergies: Coded Allergies: iodine (Verified Allergy, Intermediate, Rash, 11/17/16) Medications: Current Medications Medications (Trade) Dose Ordered Sig/Oscar Route PRN Reason Start Time Stop Time Status Last Admin Dose Admin Dextrose/Lactated Ringer's 1,000 ml @ 75 mls/hr [id number] IV 01/16/22 16:00 01/17/22 05:24 Imaging: Imaging: [facility] 12/2020 * Pt pleasant, concerned w/ swallow. Reports weight remaining steady and no respiratory/pneumonia hx. Oral stage swallow WFL. Swallow initiation mildly delayed w/ premature spill of all consistencies to the level of the pyrifroms prior to swallow initaiton. Hyolaryngeal excursion significantly impaired in both upward and anterior movement w/ absent epiglottic inversion as well as epiglottis contacting posterior pharyngeal wall. Upon video review, it appears if pt would have better hyolaryngeal excursion epiglottis may invert. Most significant finding is mod-severe phayrnegal residue after swallow. Residue likely from both decreased hyolaryneal excursion and what appears to be tight UES (discussed during raheemwalramon w/ Dr. Upton). Pt w/ effortful dry swallows to attempt to pass pharyngeal residue into esophagus. Two instances of SILENT aspiration observed when thin liquid bolus contacted residue in pyriform sinuses and projected into airway below the vocal chords during the swallow. Pt has strong cough and clear when cued and was able to eject aspirated material on 1 of 2 occasions. Use of straws, decreased bolus size, alternating consistencies and cough and clear appear somewhat beneficial. Impressions: Moderate pharyngeal dysphagia characterized by poor hyolarynegal excursion in both upward and antior movement resulting in absent epiglottic inversion, mild-mod vallecular residue and mod-severe pharyngeal residue. Silent aspiration occured x2 when liquid bolus contacted pharyngeal residue and projected into airway during the swallow. Poor hyolaryngeal excursion as well as what appears to be tight UES contributors to pharyngeal residue. Recommendations: Continue current diet of regular and thin liquids w/ swallow strategies of small bolus size, alternating consistencies, and cough/clear technique. Return to GI to discuss possible EGD (if there is less resistance at UES would pharyngeal residue be less and swallow more functional/safe) w/ repeat videoswallow after any GI intervention. If GI intervention does not result in improved swallow function/safety consider 1. neurology consult (swallow delay is sensory and decreased hyolaryneal excursion is motor) to further assess etiology of dysphagia, and 2. outpatient dysphagia tx. Videoswallow 03/2021 IMPRESSION: Trace aspiration of thin barium consistency and pooling of contrast within the valleculae and piriform sinuses. Please refer to the separate report by the speech pathologist for clinical recommendations. CT A/P from [facility] IMPRESSION: 1. Diffuse dilation of small bowel loops to the left lower quadrant, consistent with bowel obstruction. Left inguinal hernia contains a segment of small bowel although the obstruction appears to be distal. 2. Large volume colonic stool content. 3. Abdominal aortic aneurysm post aortobiiliac stent. 4. Nonobstructing renal calculi. Bilateral renal cysts are seen. [facility] 01/14/22 IMPRESSION: Extensive gaseous distention of numerous small and large bowel loops may be from distal obstruction versus ileus. Large colorectal stool burden present. Claudine elate with symptoms of constipation. Recommend continued evaluation with serial abdominal radiographs. IMPRESSION: Nasogastric intubation with abnormal S shape coiling of the distal catheter at the diaphragmatic hiatus associated with the patient's hiatal hernia. Small bowel obstruction and constipation similar to prior CT imaging. SBS 01/15 IMPRESSION: 1. Small bowel obstruction with contrast seen in nondilated loops of small bowel, predominantly in the left hemiabdomen. Contrast has not reached the colon within 6 hours. 2. Large volume of stool, greatest in the right hemicolon. Dilated transverse colon, as seen on CT. AAS 01/16 IMPRESSION: 1. Persistent diffuse dilation of bowel with progression of contrast through the colon Findings may represent partial small bowel obstruction or ileus. AAS 01/17 pending PE: GEN: NAD, thin HEENT: Atraumatic, PERRL LUNGS: CTAB HEART: RRR ABD: NABS, S/NT, mildly distended, NGT clamped EXTREMITY: No edema SKIN: No rashes, no jaundice NEURO/PSYCH: A & O 3, talkative A/P: A/P: SBO/ileus Macrocytic anemia (B12 ok), leukocytosis H/o GERD, ?PUD - on daily medication, not sure of name Chronic dysphagia - stable CRC screen - reportedly UTD (done @ [facility]) Irregular bowel pattern/constipation S/p colon resection (?for diverticulitis) CAD, chronic back pain -- Improved - stooling and tolerating liquids, plans to remove NGT and advance diet per surgery. Today's x-ray pending, will review w/ Dr. Pichardo. Seems like would benefit from more regular treatment for constipation - seems to have some response from PRN Miralax, could consider daily dosing. Could also consider Relistor here, though he tells me has passed "a lot" of stool. DAX SANDERS Jan 17, 2022 13:29
--- NOTE | 2022-01-17 14:17 | RAD ---
EXAM: XR ABDOMEN COMP ACUTE 01/17/2022 8:35 AM CLINICAL INDICATION: Small bowel obstruction COMPARISON: Abdominal series radiograph 01/16/2022 TECHNIQUE: AP supine and upright view of the abdomen. AP upright view of the chest. FINDINGS: Nasogastric tube is in the gastric body. There are median sternotomy wires. There is an ao rtobiiliac stent graft in the abdomen. Contrast is seen in the right hemicolon and rectum. The amount of contrast in the bowel has decreased. There is persistent diffuse dilation of small bowel and colo n. No pneumoperitoneum. The heart is normal in size. Lungs are clear. IMPRESSION: 1. Decreased but persistent contrast in the colon. 2. Unchanged diffuse dilation of the small bowel and colon. Electronically signed by: Meka Preciado MD (01/17/2022 2:15 PM) [id number]
[2022-01-17 15:00] VITALS: BP 126/78
--- NOTE | 2022-01-17 15:30 | NUR ---
Nasogastric tube removed from right nare. end of tubing intact without damage. Patient tolerated procedure well.
[2022-01-17 19:00] VITALS: BP 150/67
[2022-01-17] MEDS ORDERED: LORazepam 0.5 MG TABLET PO PRN (20:30)
[2022-01-17 23:00] VITALS: BP 164/62
[2022-01-18 03:00] VITALS: BP 153/51
[2022-01-18] MEDS: IV DEXTROSE 5%-LACT RINGERS 1,000 ML IV SCH (06:43)
[2022-01-18 07:00] VITALS: BP 166/50
[2022-01-18] MEDS: PANTOPRAZOLE IV PUSH 40 MG VIAL. IVP SCH (07:22)
--- NOTE | 2022-01-18 08:25 | SNU/HH DC ---
DISCHARGE WITH HOME HEALTH DISCHARGE INFORMATION: Condition on Discharge: Stable CODE STATUS: Code Status: Full HOME HEALTH: Face to Face: I certify this patient is under my care and that I, or a nurse practitioner or physician's tmd teacher assistant working with me, had a face to face encounter that meets the physician face to face encounter requirements with this patient on []. Medical Complications: Other (Resolving small bowel obstruction) [facility] For: Assess & Educate Safety RN For Eval/Treatment: Yes Physical Therapy For: Evalulation/Treatment Occupational Therapy For: Evaluation/Treatment Home Health Aide For: Self-care INTERNATIONAL STUDENT COUNSELOR For: Community Resources Pt Meets Homebound Status: Unsteady balance w/ amb, POST DISCHARGE ORDERS: DIET AFTER DISCHARGE: Cardiac CERTIFICATION STATEMENT: Certification Statement: Certification Statement: Based on the above finding, I certify that this patient is confined to the home and needs intermittent residential care, physical therapy and/or speech therapy, or continues to need occupational therapy.~ This patient is under my care, and I have initiated the establishment of the plan of care.~ This patient will be followed by myself or a community physician who will periodically review the plan of care. Home Meds Reported Medications Mcclure-3 Fatty Acids/Fish Oil (Mcclure-3 Fish Oil 1,000 mg Sfgl) 1 Each Capsule, 1 EACH PO DAILYWLUN for suppl, CAP 01/13/22 Multivitamin (DAILY VALUE) 1 Each Tablet, 1 TAB PO HS for suppl for 30 Days, #30 TAB 0 Refills 01/13/22 Ascorbic Acid (VITAMIN C) 500 Mg Capsule.er, 1000 MG PO HS for suppl, CAP.SR 01/13/22 Cholecalciferol (Vitamin D3) (D3-50) 50,000 Unit Capsule, 1000 UNIT PO HS for suppl, CAP 01/13/22 Calcium Carbonate (CALCIUM CARBONATE) 500 Mg Tablet, 1 TAB PO DAILYWLUN for supplement for 30 Days, #30 TAB 0 Refills 01/13/22 Aspirin (ASPIRIN) 81 Mg Tab.chew, 1 TAB PO QMTH for preventative, #30 TAB 3 Refills 01/13/22 Atorvastatin Calcium (Atorvastatin Calcium) 80 Mg Tablet, 80 MG PO QHS for FOR HIGH CHOLESTEROL, TAB 01/13/22 Ezetimibe (ZETIA) 10 Mg Tablet, 1 TAB PO HS for hld for 30 Days, #30 TAB 0 Refills 01/13/22 Alprazolam (ALPRAZOLAM) 0.25 Mg Tablet, 1 TAB PO DAILY for anxiety, #30 TAB 01/13/22 Losartan Potassium (LOSARTAN POTASSIUM) 100 Mg Tablet, 100 MG PO HS for HYPERTENSION, TAB 01/13/22 Omeprazole (OMEPRAZOLE) 40 Mg Capsule.dr, 1 CAP PO DAILYWLUN for gerd, #30 CAP 3 Refills 01/13/22 Ferrous Sulfate (FERROUS SULFATE) 325 Mg Tablet, 325 MG PO 11/17/16 Discontinued Reported Medications Esomeprazole Magnesium (Esomeprazole Magnesium) 40 Mg Capsule.dr, 40 MG PO 11/17/16 Alprazolam (ALPRAZOLAM) 0.25 Mg Tablet, 0.25 MG PO PRN Q6HRS PRN for ANXIETY / AGITATION, TAB 0 Refills 11/17/16 Losartan Potassium (LOSARTAN POTASSIUM) 50 Mg Tablet, 50 MG PO DAILY, TAB 11/17/16 Aspirin (ASPIRIN) 81 Mg Tab.chew, 81 MG PO, TAB.CHEW 11/17/16 Atorvastatin Calcium (ATORVASTATIN CALCIUM) 40 Mg Tablet, 40 MG PO HS for FOR CHOLESTEROL, #30 TAB 0 Refills 11/17/16 MARY GONZALEZ III DO Jan 18, 2022 08:25
--- NOTE | 2022-01-18 08:26 | PDOC ---
[employer] PROGRESS NOTE Date of Service DOS: DATE: 01/18/22 TIME: 08:25 Chief Complaint Chief Complaint SBO CAD GERD Anxiety Hyperlipidemia Hypertension AAA JULI Macrocytic anemia Nonobstructing renal calculi History of Present Illness History of Present Illness 01/19/2020 Patient seen and examined His NG is out and he is tolerating food Request discharge Discussed with RN We will go ahead and discharge 01/17 Patient evaluated examined at bedside. NG still in place. Resting in bed. Abdominal series repeated this morning. PACS system down so could not review this but patient with some clinical improvement. Surgical team following, recommendations reviewed. Continue NG for now until seen by surgical team today. Discussed with bedside RN. He is having bowel movements. 01/16/2022 Patient seen and examined He still has NG in place but it is currently clamped Also has IV normal saline hanging at 75 cc an hour Discussed with RN Discussed with case management Chart reviewed Mr Iqbal is a 76-year-old male with PMHx dysphagia, HTN, AAA s/p stenting, GERD, anxiety who presented to [facility] in [place], [place] via EMS with abdominal pain and distention. This began on 01/12/22 around 1700 in the evening. He did have a BM on 01/12, but noted worsening distention and swelling and pain that is colicky, diffuse, worse in the left lower quadrant, not relieved with rest or repositioning. He does note prior bowel obstruction and does have history of AAA s/p stenting as well as prior abdominal surgery over 10 years ago for what he thinks was perforated diverticulitis and CABG. He does see GI outpatient and has had recent swallow evaluation in the last year as well as MRI for dysphagia assessment. CT abdomen pelvis without contrast with distended small bowel loops on my interpretation with colonic stool notable. EKG appears to be sinus rhythm, rate 59, normal axis, no ST elevation or depression. WBC 12.3, Hb 12.7, MCV 102, platelets 232, NA 140, K4.2, BUN 23, CR 1.6, glucose 142, albumin 4, high-sensitivity troponin is 9, AST 28, ALT 29, alkaline phosphatase 115 total bilirubin 0.7, rapid COVID-19 negative NGT placed for patient comfort for decompression and given IV fentanyl 75mcg with some relief. Was transferred to [place] for surgical evaluation and further higher level of care. Pain not relieved bedside with 2mg of IV morphine, still visibly uncomfortable. 01/14: Increase morphine to 4 mg. NG tube pulled out overnight and replaced though it was pulmonary placement. KUB on my review with significant gaseous distention and small bowel and large colon stool burden and large bowel consistent with continued obstruction. Discussed with general surgery needs repeat NG tube placement and bowel regimen. Small bowel follow-through planned tentatively 01/15/2022, given iodine allergy will premedicate starting today. 01/15: Replacement NG tube with air released no fluid. Did have a bowel movement after suppository. Still with pain requiring IV morphine. For small bowel follow-through today Vitals/I&O Vitals/I&O: Vital Signs Date Time Temp Pulse Resp B/P (MAP) Pulse Ox O2 Delivery O2 Flow Rate FiO2 01/18/22 07:00 98.1 55 19 166/50 (88) 96 Room Air 98.1 I & O 01/17/22 01/17/22 01/18/22 15:00 23:00 07:00 Intake Total 360 ml 450 ml Output Total 0 ml Balance 360 ml 450 ml Physical Exam General: Alert, Oriented X3, Cooperative Heart: Regular rate, Normal S1, Normal S2 Abdomen: Soft, No tenderness, Other (less distended) Extremities: No clubbing, No cyanosis Skin: No rashes, No breakdown Assessment and Plan Assessmemt and Plan Plan is discharge see dictation Comment Review of Relevant I have reviewed the following items vira (where applicable) has been applied. Medications: Current Medications Medications (Trade) Dose Ordered Sig/Oscar Route PRN Reason Start Time Stop Time Status Last Admin Dose Admin Lorazepam (Ativan) 0.25 mg PRN Q8HRS PRN PO ANXIETY / AGITATION 01/17/22 20:30 01/17/22 22:50 Justifications for Admission Abdominal Pain Indications Hemodynamically unstable?: Yes Justification for admission: Patient is hemodynamically unstable as indicated by persistent tachycardia (of.), or hypotension (of..) or orthostatic vitalsigns (of..) despite approapriate treatment. Is patient in severe pain?: Yes Justification for admission: Patient has severe pain that requires (parenteral analgesic-please state analgesics and route) at least every 4 hours necessitating inpatient level of care. Is NPO status required?: Yes Justification for admission: Patient may require to be NPO for greater 24hours making it medically necessary to manage patient as inpatient. Other Justification MARY GONZALEZ III DO Jan 18, 2022 08:26
--- NOTE | 2022-01-18 10:47 | PDOC ---
Date of Service: DATE: 01/18/22 TIME: 10:45 Subjective: Subjective: Feels better, tolerating diet w/o n/v or abd pain. Has stooled. Wants to go and was told he could leave today. Objective: Vital Signs: Vital Signs Date Time Temp Pulse Resp B/P (MAP) Pulse Ox O2 Delivery O2 Flow Rate FiO2 01/18/22 08:00 Room Air 01/18/22 07:00 98.1 55 19 166/50 (88) 96 98.1 Imaging: AAS 01/17 IMPRESSION: 1. Decreased but persistent contrast in the colon. 2. Unchanged diffuse dilation of the small bowel and colon. PE: GEN: NAD LUNGS: CTAB HEART: RRR ABD: soft, non-tender, BS+ NEURO/PSYCH: A & O 3 A/P: SBO/ileus - resolving H/o GERD, dysphagia, constipation S/p colon resection (?for diverticulitis) -- Dc per primary/surgery. Try Miralax QD for constipation - adjust as needed. Continue PPI. Justicifation of Admission Dx: Justifications for Admission: Justification of Admission Dx: Yes DAX SANDERS Jan 18, 2022 10:47
[2022-01-18 11:00] VITALS: BP 148/58
--- NOTE | 2022-01-18 11:04 | NUR ---
SS following for discharge planning. SS reviewed pt chart and discussed with pt RN. Pt is from home and is currently on room air. Discharge order on the chart for home with home healthcare. SS met with pt and discussed discharge planning and home healthcare. Pt declining home healthcare at this time. Per RN, pt is independent with ADL's.
--- NOTE | 2022-01-18 15:57 | NUR ---
Discharge Note: PT DISCHARGED HOME WITH SELF CARE. PT LEFT FACILITY VIA PRIVATE VEHICLE WITH FRIEND AT 1555. PT STABLE AND ALERT UPON DISCHARGE. PT PIV REMOVED FROM L AC WITHOUT COMPLICATIONS. PT EDUCATED ABOUT DISCHARGE INSTRUCTIONS, DISCHARGE MEDICATIONS, AND FOLLOW-UP CARE INSTRUCTIONS. NO CONCERNS VOICED AT THIS TIME. PT LEFT WITH ALL PERSONAL BELONGINGS. JAMAL HOOK Discharge instructions and discharge home medications reviewed with Patient and a copy given. All questions have been answered and understanding verbalized.
--- NOTE | 2022-01-19 12:12 | DS ---
DATE OF DISCHARGE: 01/18/2022 ADMITTING DIAGNOSIS: Small-bowel obstruction. DISCHARGE DIAGNOSIS: Resolving small-bowel obstruction. CONSULTS: GI and General Surgery. PROCEDURES: None. HOSPITAL COURSE: The patient is a pleasant middle-aged male who presented with a small-bowel obstruction. We admitted him, placed an NG tube. The above consults were obtained. Over the next few days, we followed his imaging and his imaging did improve. We discontinued the NG. Yesterday, I saw and examined him. He is doing well, tolerating a diet, will be discharged home. DISPOSITION: Home. ACTIVITY: As tolerated. DIET: Low sodium. DISCHARGE MEDICATIONS: Please see the MRAD. Alprazolam 0.5 daily p.r.n., vitamin C, aspirin 81 a day, atorvastatin 80 a day, calcium with vitamin D, Zetia 10 a day, iron 325 a day, losartan 100 a day, multiple vitamins, fish oil, and Prilosec 40 a day. TOTAL TIME: 34 minutes. ISABEL/CHRISTIANO DR: Isabell TID: [id number]
== END 2022-01-18 15:55 | disposition home or self-care (01) | DRG 388 ==
LOC: 5 NORTH 08:06
PROVIDERS: ADMIT Internal Medicine; ATTEND Internal Medicine
PROC: 0D9670Z Drainage of Stomach with Drainage Device, Via Natural or Artificial Opening (ICD-10-PCS; principal; 2022-01-13)
DX: K56.609 Unspecified intestinal obstruction, unspecified as to partial versus complete obstruction (principal); N17.0 Acute kidney failure with tubular necrosis; K59.39 Other megacolon; D53.9 Nutritional anemia, unspecified; E78.5 Hyperlipidemia, unspecified; F41.9 Anxiety disorder, unspecified; I12.9 Hypertensive chronic kidney disease with stage 1 through stage 4 chronic kidney disease, or unspecified chronic kidney disease; I25.10 Atherosclerotic heart disease of native coronary artery without angina pectoris; I71.4 Abdominal aortic aneurysm, without rupture; K21.9 Gastro-esophageal reflux disease without esophagitis; K56.7 Ileus, unspecified; N18.9 Chronic kidney disease, unspecified; N20.0 Calculus of kidney; N28.1 Cyst of kidney, acquired; Z20.822 Contact with and (suspected) exposure to COVID-19; Z79.82 Long term (current) use of aspirin; Z82.49 Family history of ischemic heart disease and other diseases of the circulatory system; Z86.79 Personal history of other diseases of the circulatory system; Z90.49 Acquired absence of other specified parts of digestive tract; Z91.041 Radiographic dye allergy status; Z95.1 Presence of aortocoronary bypass graft; Z98.41 Cataract extraction status, right eye; Z98.42 Cataract extraction status, left eye; Z98.84 Bariatric surgery status
CPT/HCPCS: 36415; 74018; 74022; 74250; 80053; 82607; 84443; 85007; 85025; C9113; J1200; J2270; J2920; J3490; J7030; J7121; Q9967; G0378

== ENCOUNTER → 2022-02-09 | Outpatient (CLI) | payer MEDICARE, BC ==
[2022-01-18 11:00] VITALS: BP 148/58
[~2022-02-09] MED LIST changes: +ASCO500C PO; +ATOR80TA72 PO; +CALC500T31 PO; +CHOL500021 PO; +EZET10TA20 PO; +LOSA100T14 PO; +MULT-496 PO; +OMEG-129 PO; +OMEP40CA7 PO
== END ==
LOC: LAB 09:10
PROVIDERS: ATTEND Nurse Practitioner Family
DX: R13.19 Other dysphagia (principal); R53.1 Weakness
CPT/HCPCS: 36415; 82607; 82746; 83519; 86255; 84238